=== PATIENT | male | born 1935 | race Caucasian/White ===

== ENCOUNTER 2021-10-05 19:41 | Emergency (ER) | payer MEDICARE, SELFPAY ==
--- NOTE | ~2021-10-05 | CT_ITS ---
EXAMINATION: CT HEAD WITHOUT CONTRAST CT CERVICAL SPINE WITHOUT CONTRAST CLINICAL INFORMATION: Fall. COMPARISON: There are no prior studies available for comparison. TECHNIQUE: Multidetector CT imaging of the head and cervical spine was performed without the use of intravenous contrast. Coronal and sagittal reformatted images were generated at the technologist workstation. This CT examination was performed using dose optimization techniques as appropriate, variously including the following: *Automated exposure control *Adjustment of mA and/or kV according to patient size (this includes techniques or standardized protocols for targeted exams where dose is matched to indication/reason for exam; i.e. extremities or head) *Use of iterative reconstruction technique DLP: 1059 mGy-cm. FINDINGS: CT head: There is no evidence of acute intracranial hemorrhage or territorial infarction. No abnormal mass-effect or midline shift is seen. [place] to white matter differentiation is well preserved. No extra-axial fluid collections are identified. The ventricles and sulci commensurately prominent consistent with moderate to severe diffuse volume loss. There are large areas of low-attenuation in the periventricular and subcortical white matter bilaterally, consistent with chronic microvascular ischemic changes. There are chronic lacunar infarcts in the basal ganglia bilaterally, more prominent on the left. There are extensive calcifications of the cavernous internal carotid arteries bilaterally. There have been bilateral lens extractions. There are no acute osseous findings. There are no large scalp contusions or hematomas. The mastoid air cells and the paranasal sinuses are well-aerated. CT cervical spine: There is a dextroscoliosis. There is a mild degenerative anterolisthesis of C4 on C5. There is partial fusion of the bodies of C2 and C3. There is multilevel narrowing of intervertebral disc height with vacuum disc changes at C6-C7. Vertebral body heights are maintained and no compression fractures. There are severe multilevel facet arthropathic changes; facet alignment is normal. The lateral masses of C1 and C2 are normally aligned and the dens is intact. There are nuchal calcifications. There are extensive vascular calcifications in the neck and superior mediastinum. There is atelectasis and scarring at the left upper lobe. There are no pneumothoraces, contusions or pleural effusions. There are sequelae of median sternotomy. There are mandibular dental implants noted on the certified tumor registrar image. CT/CT cervical spine wo con IMPRESSION: 1. There are no acute bleeds or territorial infarcts. No masses are demonstrated. 2. There are chronic microvascular ischemic changes and there is diffuse volume loss. There are multiple lacunar infarcts. 3. There are no acute fractures or subluxations in the cervical spine. There is severe multilevel facet arthropathy and there are spondylitic changes at multiple levels.
--- NOTE | ~2021-10-05 | XR_ITS ---
EXAMINATION: XR LUMBOSACRAL SPINE CLINICAL INFORMATION: Fall with back pain COMPARISON: None TECHNIQUE: Three views of the lumbosacral spine. FINDINGS: Postoperative changes with pedicular screws at L4-L5 are present with intervertebral disc spacer. The hardware appears intact. There is a mild scoliosis convex to the right. Compression fracture of L1 with concavity of both the superior and inferior endplates with some mild concavity of the superior endplate of L2 as well. No bony destructive changes are seen. Severe aorto iliofemoral atherosclerotic changes are seen. XR/XR lumbar spine 2-3V IMPRESSION: No definite acute osseous injury. Compression fractures, most likely chronic as described above. Fixation hardware L4-L5 appears intact.
--- NOTE | 2021-10-05 19:51 | ECG_ITS ---
Test Reason : FALL Blood Pressure : / mmHG Vent. Rate : 067 BPM Atrial Rate : 067 BPM P-R Int : 192 ms QRS Dur : 154 ms QT Int : 464 ms P-R-T Axes : 001 065 068 degrees QTc Int : 490 ms Normal sinus rhythm Right bundle branch block Abnormal ECG When compared with ECG of 04-MAR-2007 07:24, Right bundle branch block has replaced Incomplete right bundle branch block Referred By: Radha Eagle Electronically Signed By:MILAD QUILES
--- NOTE | 2021-10-05 19:58 | ED.FALL ---
HPI - Fall General Chief Complaint: Fall Stated Complaint: fall/back pain Time Seen by Provider: 10/05/21 19:50 Source: patient and EMS Mode of arrival: EMS Limitations: no limitations History of Present Illness HPI Narrative: [age] year male came in for evaluation after a mechanical fall. Patient was taking a shower when he tried to reach up to the shower handle patient lost balance and fell backward out of the shower, unsure if he hit his head, but decline LOC, no headache, no blurry vision, patient claimed that he is taking a blood thinner not sure the name of a and medication list is not available at the time, complaining of low back pain, patient otherwise does not complain of chest pain, declined dizziness before or after fall. No chest pain, no abdominal pain, no extremities pain, no hip pain. Related Data Previous Rx's Medication Instructions Recorded oxycodone 5 mg tablet 5 mg PO BID PRN #20 tab 10/05/21 Allergies Allergy/AdvReac Type Severity Reaction Status Date / Time amoxicillin [AMOXICILLIN] Allergy Intermediate RASH Verified 10/05/21 20:50 azithromycin Allergy Unknown RASH Verified 10/05/21 20:50 [From ZITHROMAX Z-MIGUEL ANGEL] clopidogrel [Plavix] Allergy Unknown Rash Verified 10/05/21 20:50 doxycycline Allergy Unknown Rash Verified 10/05/21 20:50 levofloxacin Allergy Unknown Rash Verified 10/05/21 20:50 Review of Systems Review of Systems: All other systems are reviewed and are negative Constitutional: Reports as per HPI and Reports no additional constitutional complaints Eyes: Reports as per HPI and Reports no additional eye complaints Reports system reviewed and no additional complaints, except as documented Cardiovascular: Reports as per HPI and Reports no additional cardiovascular complaints Respiratory: Reports as per HPI and Reports no additional respiratory complaints Gastrointestinal: Reports as per HPI and Reports no additional gastrointestinal complaints Genitourinary: Reports no additional female genitourinary complaints Musculoskeletal: Reports no additional musculoskeletal complaints Skin/Breast: Reports system reviewed and no additional complaints, except as docu Psychiatric: Reports no additional psychiatric complaints Endocrine: Reports no additional endocrine complaints Hematologic/Lymphatic: Reports no additional hematologic/lymphatic complaints Allergic/Immunologic: Reports no additional allergic/immunologic complaints Reports system reviewed and no additional complaints, except as documented and Reports Abnormal speech present [facility] Social History Social History Advance Directives: No Advance Directives Information Provided: Yes Physical Exam Vital Signs: Vital Signs: Last Vital Signs Temp 97.8 F 10/05/21 20:06 Pulse 82 10/05/21 23:40 Resp 16 10/05/21 23:40 BP 132/63 10/05/21 23:40 Pulse Ox 91 L 10/05/21 23:40 BMI result Body Mass Index 21.9 Vital signs have been reviewed as appeared to be correct. Blood pressure normal. Heart rate normal. Respiration rate normal. Temperature normal. Oxygen saturation normal. Appearance: Alert. Oriented X3. No acute distress. Head: Normal external exam. Normocephalic. Atraumatic. No Mhaer signs noted. No raccoon eyes noted Eyes: PERRLA. EOMI. Conjunctiva and sclera normal. Eyelids normal. ENT: TM's Normal. Pharynx normal. Uvula midline. Moist mucous membranes. No trismus noted. No drooling noted. No muffled voice noted. Neck: Normal inspection. Neck supple. FROM. No adenopathy. Thyroid Normal. No meningeal signs. No neck mass noted. CVS: Normal heart rate and rhythm. Heart sound normal. No murmurs noted. Pulses normal throughout. Respiratory: No respiratory distress. Painless inspiration. Breath sounds normal. No wheezes/rales/rhonchi noted. Chest nontender. No accessory muscle usage noted or decreased air movement noted. Abdomen: Soft and nontender. Bowel sounds normal in all 4 quadrants. No distention noted. No organomegaly noted. No visible injury noted. Back: Low back tenderness, no step-off, no deformity. Skin: Skin warm and dry. Normal skin color. Normal skin turgor. No rashes/lesions/lacerations noted. Extremities: No lower extremity edema. Extremities exhibit normal range of motion. Extremities nontender. Neuro: Oriented X 3. Cranial nerve exam: II-XII are grossly intact No motor deficit. No sensory deficit. Reflexes normal. Course Course Course Narrative: Assessment and plan. 85-year-old male came in after had a mechanical fall, complaining of low back pain, laboratory workup is unrevealing, CT of the head and C-spine are unremarkable, lumbar spine x-ray showing chronic L1 compression fracture. Patient is comfortable in the emergency department, able to ambulate. Will discharge with family. Reevaluation(s) Reevaluation #1: Patient is ready to be discharged moved from the bed to the wheelchair, patient is complaining of pain, patient was offered to stay for placement to rehab for short stay physical rehab but patient declined this today and would like to be home in the holidays. Will prescribe pills of oxycodone to help with patient home with pain. Time: 00:03 MDM - Fall Medical Records Attestation: I reviewed the patient's medical records. Lab Data Attestation: I reviewed the patient's lab results. Result diagrams: 10/05/21 20:42 10/05/21 20:42 Labs: Lab Results 10/05/21 10/05/21 10/05/21 Range/Units 20:42 20:42 20:42 WBC 11.1 H (4.8-10.8) X10*3/uL RBC 3.56 L (4.60-5.80) X10*6/uL Hgb 11.0 L (14.0-18.0) g/dl Hct 33.4 L (42.0-52.0) % MCV 93.8 (80.0-98.0) fL MCH 30.9 (27.0-33.0) pg MCHC 32.9 (31.0-36.0) g/dl RDW 13.2 (11.0-16.0) % Plt Count 164 (160-400) X10*3/uL MPV 9.1 L (9.4-12.4) fL Immature Gran % (Auto) 0.8 H (0.0-0.4) % Neut % (Auto) 90.5 H (45-73) % Lymph % (Auto) 4.0 L (20-40) % [place] % (Auto) 3.9 (2-11) % Eos % (Auto) 0.7 (0-4) % Baso % (Auto) 0.1 (0-2) % Lymph # (Auto) 0.4 L (1.2-4.9) X10*3/uL [place] # (Auto) 0.4 (0.1-1.2) X10*3/uL Eos # (Auto) 0.1 (0.0-0.4) X10*3/uL Baso # (Auto) 0.0 (0.0-0.2) X10*3/uL Abs Immat Gran (auto) 0.09 H (0.00-0.03) X10*3/uL Absolute Neuts (auto) 10.0 H (2.0-8.3) x10*3/uL Absolute Nucleated RBC 0.000 (0.0-0.012) X10*3/uL Nucleated RBC % (auto) 0.0 (0.0-0.2) /100WBC Smear Tech's Comments VERIFIED PT 12.9 (9.9-13.0) SEC INR 1.1 (0.9-1.1) APTT 42.3 H (24.1-38.0) SEC Sodium 139 (135-145) mmol/L Potassium 4.1 (3.3-5.1) mmol/L Chloride 106 (96-108) mmol/L Carbon Dioxide 25 (22-29) mmol/L Anion Gap 12 (12-20) BUN 23 H (9-16) mg/dL Creatinine 1.30 (0.5-1.4) mg/dL Estim Creat Clear Calc 36.6 Estimated GFR 52 Random Glucose 213 H (60-115) mg/dL Calcium 9.3 (8.4-10.2) mg/dL Troponin I High Sens (<3.5-35.0) ng/L 10/05/21 Range/Units 20:42 WBC (4.8-10.8) X10*3/uL RBC (4.60-5.80) X10*6/uL Hgb (14.0-18.0) g/dl Hct (42.0-52.0) % MCV (80.0-98.0) fL MCH (27.0-33.0) pg MCHC (31.0-36.0) g/dl RDW (11.0-16.0) % Plt Count (160-400) X10*3/uL MPV (9.4-12.4) fL Immature Gran % (Auto) (0.0-0.4) % Neut % (Auto) (45-73) % Lymph % (Auto) (20-40) % [place] % (Auto) (2-11) % Eos % (Auto) (0-4) % Baso % (Auto) (0-2) % Lymph # (Auto) (1.2-4.9) X10*3/uL [place] # (Auto) (0.1-1.2) X10*3/uL Eos # (Auto) (0.0-0.4) X10*3/uL Baso # (Auto) (0.0-0.2) X10*3/uL Abs Immat Gran (auto) (0.00-0.03) X10*3/uL Absolute Neuts (auto) (2.0-8.3) x10*3/uL Absolute Nucleated RBC (0.0-0.012) X10*3/uL Nucleated RBC % (auto) (0.0-0.2) /100WBC Smear Tech's Comments PT (9.9-13.0) SEC INR (0.9-1.1) APTT (24.1-38.0) SEC Sodium (135-145) mmol/L Potassium (3.3-5.1) mmol/L Chloride (96-108) mmol/L Carbon Dioxide (22-29) mmol/L Anion Gap (12-20) BUN (9-16) mg/dL Creatinine (0.5-1.4) mg/dL Estim Creat Clear Calc Estimated GFR Random Glucose (60-115) mg/dL Calcium (8.4-10.2) mg/dL Troponin I High Sens 8.4 (<3.5-35.0) ng/L Imaging Data Lumbar spine x-ray: Attestation: I personally reviewed and interpreted this imaging study as follows: Radiologist's impression: No definite acute osseous injury. Compression fractures, most likely chronic as described above. Fixation hardware L4-L5 appears intact. CT scan - head: Attestation: I personally reviewed and interpreted this imaging study as follows: Radiologist's impression: 1. There are no acute bleeds or territorial infarcts. No masses are demonstrated. ? 2. There are chronic microvascular ischemic changes and there is diffuse volume loss. There are multiple lacunar infarcts. cervical spine ct: Attestation: I personally reviewed and interpreted this imaging study as follows: Radiologist's impression: There are no acute fractures or subluxations in the cervical spine. There is severe multilevel facet arthropathy and there are spondylitic changes at multiple levels. ECG Data Attestation: I personally reviewed and interpreted this ECG as follows: Interpretation: Normal sinus rhythm at 67 beats per minutes, normal intervals, except prolongation of QRS, right bundle branch block. changed from old EKG from incomplete right bundle-branch block to complete right bundle branch block. Discharge Plan Discharge Clinical Impression: Compression fracture Fall Qualifiers: Encounter type: initial encounter Qualified Code(s): W19.XXXA - Unspecified fall, initial encounter Patient Disposition: Home, Self-Care Instructions: Fall Prevention for Older Adults (ED) Prescriptions: New oxycodone 5 mg tablet 5 mg PO BID PRN (Reason: pain) Qty: 20 RF: 0 Referrals: Physician,Unknown J [Primary Care Provider] - 2 days
[2021-10-05 20:06] VITALS: BP 181/57; PULSE 73; RESP 16; TEMP 36.6; O2SAT 92; BMI 21.9
[2021-10-05 20:48] VITALS: BP 145/53; PULSE 72; RESP 15; O2SAT 95
[2021-10-05 20:50] LABS: Basophils Percent Auto 0.1 % (0-2); Eosinophils Absolute Auto 0.1 X10*3/uL (0.0-0.4); Eosinophils Percent Auto 0.7 % (0-4); Hematocrit 33.4 % (42.0-52.0); Imm Gran Abs Auto 0.09 X10*3/uL (0.00-0.03); Imm Gran Pct Auto 0.8 % (0.0-0.4); Lymphocytes Absolute Auto 0.4 X10*3/uL (1.2-4.9); MANUAL DIFF FLAG SCAN; Mean Corpuscular HGB Conc 32.9 g/dl (31.0-36.0); Mean Corpuscular Hemoglobin 30.9 pg (27.0-33.0); Mean Corpuscular Volume 93.8 fL (80.0-98.0); Mean Platelet Volume 9.1 fL (9.4-12.4); Monocytes Absolute Auto 0.4 X10*3/uL (0.1-1.2); Monocytes Percent Auto 3.9 % (2-11); Neutrophils Percent Auto 90.5 % (45-73); Platelet Count 164 X10*3/uL (160-400); Red Blood Count 3.56 X10*6/uL (4.60-5.80); Red Cell Distribution Width 13.2 % (11.0-16.0); SCAN SMEAR FLAG 1; White Blood Count 11.1 X10*3/uL (4.8-10.8)
[2021-10-05] MEDS: Acetaminophen 325 MG TABLET 650 MG PO (20:50)
[2021-10-05 21:04] LABS: INTERNATIONAL NORM RATIO 1.1 (0.9-1.1); Prothrombin Time 12.9 SEC (9.9-13.0)
[2021-10-05 21:07] LABS: Partial Thromboplastin Time 42.3 SEC (24.1-38.0)
[2021-10-05 21:15] LABS: Anion Gap 12 (12-20); Blood Urea Nitrogen 23 mg/dL (9-16); Calcium 9.3 mg/dL (8.4-10.2); Carbon Dioxide 25 mmol/L (22-29); Chloride 106 mmol/L (96-108); Creatinine Clr Calc Pharmacy 36.6; Estimated Glomerular Filt Rate 52; Glucose Random 213 mg/dL (60-115); Potassium 4.1 mmol/L (3.3-5.1); Sodium 139 mmol/L (135-145)
[2021-10-05 21:23] LABS: Troponin-I High Sensitivity 8.4 ng/L (<3.5-35.0)
[2021-10-05 21:31] LABS: SLIDE REVIEW VERIFIED
[2021-10-05] MEDS: oxyCODONE HCl Immed Release 5 MG TABLET PO (22:29)
--- NOTE | 2021-10-05 23:25 | PC.NURSE ---
This RN called PT's to coordinate a ride home. stated that she cannot drive at night but she would call her daughter to flower picker the PT. stated that she would call back with a plan.
[2021-10-05 23:40] VITALS: BP 132/63; PULSE 82; RESP 16; O2SAT 91
== END 2021-10-06 00:16 | disposition home or self-care (01) ==
PROVIDERS: Emergency Provider Emergency Medicine
DX: S32.040A Wedge compression fracture of fourth lumbar vertebra, initial encounter for closed fracture (principal); S32.050A Wedge compression fracture of fifth lumbar vertebra, initial encounter for closed fracture; W18.2XXA Fall in (into) shower or empty bathtub, initial encounter; Z91.81 History of falling; Y93.E1 Activity, personal bathing and showering; Y92.012 Bathroom of single-family (private) house as the place of occurrence of the external cause; Y99.9 Unspecified external cause status
CPT/HCPCS: 36415; 70450; 72100; 72125; 80048; 84484; 85025; 85610; 85730; 93005; 99284

== ENCOUNTER 2021-10-19 00:35 | Inpatient (IN) | payer OTHER, SELFPAY ==
--- NOTE | ~2021-10-19 | XR_ITS ---
EXAMINATION: XR CHEST CLINICAL INFORMATION: Weakness COMPARISON: Comparison is made with previous chest x-ray from March 2010. TECHNIQUE: Frontal view of the chest was obtained. FINDINGS: The cardiac silhouette does not appear enlarged. There are median sternotomy wires and post-CABG changes There is a surgical staple line seen projecting over the left upper lung that is new. There is elevation of the right hemidiaphragm. The lungs are clear. There is no pleural effusion. There is no pneumothorax. There are degenerative changes of the spine. XR/XR chest 1V IMPRESSION: No evidence for acute disease in the chest. Post-CABG changes. Elevated right hemidiaphragm. New postsurgical changes to the left upper lobe.
--- NOTE | ~2021-10-19 | CT_ITS ---
EXAMINATION: CT ABDOMEN AND PELVIS WITHOUT CONTRAST CLINICAL INFORMATION: Weakness, constipation COMPARISON: None TECHNIQUE: Multidetector volumetric imaging was performed from the superior aspect of the liver through the pubic symphysis. Sagittal and coronal reformatted images were obtained on the technologist's workstation. This CT examination was performed using dose optimization techniques as appropriate, variously including the following: *Automated exposure control *Adjustment of mA and/or kV according to patient size (this includes techniques or standardized protocols for targeted exams where dose is matched to indication/reason for exam; i.e. extremities or head) *Use of iterative reconstruction technique DLP: 438 mGy-cm FINDINGS: LUNG BASES: No effusion. Density in the left upper lobe partially imaged may represent represent a scar. Incompletely characterized. LIVER, GALLBLADDER, AND BILIARY TREE: The liver is normal in size, shape, and attenuation. No focal hepatic lesion or biliary ductal dilatation is present. Gallstones are noted PANCREAS: Unremarkable. SPLEEN: Unremarkable. ADRENAL GLANDS: Unremarkable. KIDNEYS AND URETERS: Probable cystic change. No hydronephrosis. BLADDER: Edmondson catheter within a decompressed bladder GASTROINTESTINAL TRACT: Moderate to marked rectosigmoid stool. Diverticulosis. No evidence for diverticulitis. No obstruction. ABDOMINAL WALL: No significant hernia is appreciated. LYMPH NODES: Normal. VASCULAR: Calcified vasculature PELVIC VISCERA: Unremarkable. OSSEOUS STRUCTURES: Compression injury at L1. Also seen on 10/05/2021 age-indeterminate. There is some mild retropulsion of fracture fragments into the region of the canal by [address]/CT abdomen pelvis wo con IMPRESSION: There is no acute finding here. Moderate to marked rectosigmoid stool with more moderate stool throughout the remainder the colon. No suspicious fluid collection. Gallstones. Compression injury at L1 which is age indeterminate but seen on plain films from 10/05/2021. Some retropulsion of posterior cortex into the region of the canal. Fleischner guidelines were followed.
[2021-10-19 02:23] VITALS: BP 116/47; PULSE 70; RESP 16; TEMP 36.3; O2SAT 95; BMI 23.3
--- NOTE | 2021-10-19 08:02 | ECG_ITS ---
Test Reason : weakness Blood Pressure : / mmHG Vent. Rate : 064 BPM Atrial Rate : 064 BPM P-R Int : 192 ms QRS Dur : 170 ms QT Int : 468 ms P-R-T Axes : -12 064 040 degrees QTc Int : 482 ms Sinus rhythm with Premature supraventricular complexes Right bundle branch block Possible Inferior infarct (cited on or before 19-OCT-2021) Anterolateral infarct (cited on or before 19-OCT-2021) Abnormal ECG When compared with ECG of 05-OCT-2021 20:06, Premature supraventricular complexes are now Present Serial changes of Anterior infarct Present Referred By: Marilyn Galvin Electronically Signed By:MARIO CORTES MD
--- NOTE | 2021-10-19 08:18 | ED.WEAKNESS ---
HPI - Weakness General Chief complaint: Weakness Stated complaint: WEAK SINCE FALL ON CLAY PER Time Seen by Provider: 10/19/21 07:59 Source: patient and old records reviewed Mode of arrival: EMS Limitations: no limitations History of Present Illness HPI Narrative: seen 10/05 for fall - xray showed chronic L1 compression fracture sent home with oxycodone now states constipation x 4 days and fell asleep on toilet today because he was so tired, pinpoint pupils - runny nose and cough Complaint: generalized weakness (constipation) Onset (ago): day(s) (4) Duration: constant Location: generalized Migration: none Severity: moderate Quality: aching Relieving factors: none Exacerbating factors: none Context: new medication and recent illness Associated symptoms: other (constipation, weakness) Related Data Home Medications Medication Instructions Recorded Confirmed amlodipine 5 mg tablet 1 tab PO DAILY 10/19/21 10/19/21 aspirin 81 mg tablet,delayed 81 mg PO DAILY 10/19/21 10/19/21 release atorvastatin 40 mg tablet 1 tab PO BEDTIME 10/19/21 10/19/21 carvedilol 12.5 mg tablet 6.25 mg PO BID 10/19/21 10/19/21 ezetimibe 10 mg tablet 1 tab PO DAILY 10/19/21 10/19/21 indapamide 1.25 mg tablet 1 tab PO DAILY 10/19/21 10/19/21 lisinopril 40 mg tablet 1 tab PO DAILY 10/19/21 10/19/21 ticagrelor 90 mg tablet (Brilinta) 1 tab PO BID 10/19/21 10/19/21 timolol maleate 0.5 % eye drops 1 drp OPHTHALMIC (EYE) DAILY 10/19/21 10/19/21 umeclidinium 62.5 mcg/actuation 1 puff INHALATION DAILY 10/19/21 10/19/21 blister powder for inhalation (Incruse Ellipta) Previous Rx's Medication Instructions Recorded oxycodone 5 mg tablet 5 mg PO BID PRN #20 tab 10/05/21 Allergies Allergy/AdvReac Type Severity Reaction Status Date / Time amoxicillin [AMOXICILLIN] Allergy Intermediate RASH Verified 10/05/21 20:50 azithromycin Allergy Unknown RASH Verified 10/05/21 20:50 [From ZITHROMAX Z-MIGUEL ANGEL] clopidogrel [Plavix] Allergy Unknown Rash Verified 10/05/21 20:50 doxycycline Allergy Unknown Rash Verified 10/05/21 20:50 levofloxacin Allergy Unknown Rash Verified 10/05/21 20:50 Review of Systems Review of Systems: Constitutional : No Weight loss, No Fever, No Chills ENT/Mouth : No sore throat, No Rhinorrhea Eyes: No Swelling, No Redness Cardiovascular : No Chest Pain, No SOB, NoEdema Respiratory : No Cough, No Sputum, No Wheezing Gastrointestinal : no Nausea, no Vomiting, no Diarrhea, no abdominal Pain, No Hematochezia, No Melena, pos constipation Genitourinary : No Dysuria, No Urinary Frequency, No Hematuria, No Urgency Musculoskeletal : No joint pain, No Myalgias, No Joint Swelling Skin : No Skin Lesions, No rash Neuro : pos Weakness, No Numbness, No Dizziness, No Headache Psych : No Anxiety/Panic, No Depression Heme/Lymph: No Bruising, No Lymphadenopathy Endocrine : No Polyuria, No Polydipsia All other systems reviewed and are negative. [facility] Past Medical History Medical History CAD (coronary artery disease) Compression fracture of lumbar spine, non-traumatic HTN (hypertension) Hyperlipidemia Social History Social History (Updated 10/19/21 @ 08:37 by Marilyn Galvin DO) Patient Tobacco Use Status: Former Tobacco user Use of substances other than those prescribed or required for medical reasons: No Advance Directives: No Advance Directives Information Provided: Yes Physical Exam Vital Signs: Vital Signs: Last Vital Signs Temp 97.4 F 10/19/21 02:23 Pulse 64 10/19/21 09:50 Resp 16 10/19/21 09:50 BP 154/55 H 10/19/21 09:50 Pulse Ox 97 10/19/21 09:50 BMI result Body Mass Index 23.3 Appearance: Alert. Oriented X3. No acute distress. Eyes: Pupils equal, round and reactive to light. ENT: Pharynx normal. Runny nose Neck: Normal inspection. Neck supple. CVS: Normal heart rate and rhythm. Pulses normal. Respiratory: No respiratory distress. Breath sounds diminished bases Abdomen: Soft and non-tender. Skin: Skin warm and dry. Normal skin color. Normal skin turgor. Extremities: No lower extremity edema. No calf ttp L5 5/5 intact, SILT inner thigh Neuro: Oriented X 3. No motor deficit. No sensory deficit. Course Course Course Narrative: urine resulted positive at this time infection suspected 940am - IV ceftriaxone ordered. MDM - Weakness MDM Narrative Medical decision making narrative: 85 yo male with hx of HTN, HPL, CAD, hx of compression fractures on oxycodone as needed for back pain presents with 4 days of constipation weakness found asleep on toilet today after trying to have BM at this time will need labs, CT scan for mass/constipation, CXR, UA COVID swab. Dispo per result and findings. Lab Data Result diagrams: 10/19/21 08:42 10/19/21 08:42 Labs: Lab Results 10/19/21 10/19/21 10/19/21 Range/Units 08:42 08:42 08:42 WBC 12.9 H (4.8-10.8) X10*3/uL RBC 3.60 L (4.60-5.80) X10*6/uL Hgb 11.3 L (14.0-18.0) g/dl Hct 33.5 L (42.0-52.0) % MCV 93.1 (80.0-98.0) fL MCH 31.4 (27.0-33.0) pg MCHC 33.7 (31.0-36.0) g/dl RDW 13.8 (11.0-16.0) % Plt Count 245 D (160-400) X10*3/uL MPV 8.9 L (9.4-12.4) fL Immature Gran % (Auto) 0.5 H (0.0-0.4) % Neut % (Auto) 91.2 H (45-73) % Lymph % (Auto) 3.0 L (20-40) % [place] % (Auto) 4.9 (2-11) % Eos % (Auto) 0.3 (0-4) % Baso % (Auto) 0.1 (0-2) % Lymph # (Auto) 0.4 L (1.2-4.9) X10*3/uL [place] # (Auto) 0.6 (0.1-1.2) X10*3/uL Eos # (Auto) 0.0 (0.0-0.4) X10*3/uL Baso # (Auto) 0.0 (0.0-0.2) X10*3/uL Abs Immat Gran (auto) 0.06 H (0.00-0.03) X10*3/uL Absolute Neuts (auto) 11.8 H (2.0-8.3) x10*3/uL Absolute Nucleated RBC 0.000 (0.0-0.012) X10*3/uL Nucleated RBC % (auto) 0.0 (0.0-0.2) /100WBC Smear Tech's Comments VERIFIED Sodium 138 (135-145) mmol/L Potassium 4.3 (3.3-5.1) mmol/L Chloride 100 (96-108) mmol/L Carbon Dioxide 28 (22-29) mmol/L Anion Gap 14 (12-20) BUN 57 H D (9-16) mg/dL Creatinine 2.37 H (0.5-1.4) mg/dL Estim Creat Clear Calc 20.1 Estimated GFR 26 Random Glucose 181 H (60-115) mg/dL Lactic Acid (0.5-2.0) mmol/L Calcium 10.0 D (8.4-10.2) mg/dL Magnesium 2.9 H (1.6-2.6) mg/dL Total Bilirubin 1.0 (0.0-1.0) mg/dL Direct Bilirubin 0.6 H (0.0-0.5) mg/dL AST 19 (5-37) U/L ALT 17 (0-40) U/L Alkaline Phosphatase 125 H (39-117) U/L Total Creatine Kinase 108 (38-174) U/L Troponin I High Sens (<3.5-35.0) ng/L Total Protein 7.1 (6.5-8.0) g/dL Albumin 4.2 (3.5-5.0) g/dL Lipase 13 (8-78) U/L Urine Color Urine Appearance Urine pH (5.0-8.0) Ur Specific [place] (1.005-1.025) Urine Protein (NEG-TRACE) MG/DL Urine Glucose (UA) (NEG) MG/DL Urine Ketones (NEG) MG/DL Urine Blood (NEG) Urine Nitrite (NEG) Ur Leukocyte Esterase (NEG) Urine RBC (0) /HPF Urine WBC (0-4) /HPF Ur Squamous Epith Cells /LPF Urine Bacteria /LPF COVID-19 (OCTAVIA) Negative (Negative) COVID-19 Clin Com See Note 10/19/21 10/19/21 10/19/21 Range/Units 08:42 08:42 09:29 WBC (4.8-10.8) X10*3/uL RBC (4.60-5.80) X10*6/uL Hgb (14.0-18.0) g/dl Hct (42.0-52.0) % MCV (80.0-98.0) fL MCH (27.0-33.0) pg MCHC (31.0-36.0) g/dl RDW (11.0-16.0) % Plt Count (160-400) X10*3/uL MPV (9.4-12.4) fL Immature Gran % (Auto) (0.0-0.4) % Neut % (Auto) (45-73) % Lymph % (Auto) (20-40) % [place] % (Auto) (2-11) % Eos % (Auto) (0-4) % Baso % (Auto) (0-2) % Lymph # (Auto) (1.2-4.9) X10*3/uL [place] # (Auto) (0.1-1.2) X10*3/uL Eos # (Auto) (0.0-0.4) X10*3/uL Baso # (Auto) (0.0-0.2) X10*3/uL Abs Immat Gran (auto) (0.00-0.03) X10*3/uL Absolute Neuts (auto) (2.0-8.3) x10*3/uL Absolute Nucleated RBC (0.0-0.012) X10*3/uL Nucleated RBC % (auto) (0.0-0.2) /100WBC Smear Tech's Comments Sodium (135-145) mmol/L Potassium (3.3-5.1) mmol/L Chloride (96-108) mmol/L Carbon Dioxide (22-29) mmol/L Anion Gap (12-20) BUN (9-16) mg/dL Creatinine (0.5-1.4) mg/dL Estim Creat Clear Calc Estimated GFR Random Glucose (60-115) mg/dL Lactic Acid 1.4 (0.5-2.0) mmol/L Calcium (8.4-10.2) mg/dL Magnesium (1.6-2.6) mg/dL Total Bilirubin (0.0-1.0) mg/dL Direct Bilirubin (0.0-0.5) mg/dL AST (5-37) U/L ALT (0-40) U/L Alkaline Phosphatase (39-117) U/L Total Creatine Kinase (38-174) U/L Troponin I High Sens 8.4 (<3.5-35.0) ng/L Total Protein (6.5-8.0) g/dL Albumin (3.5-5.0) g/dL Lipase (8-78) U/L Urine Color DK YELLOW Urine Appearance HAZY Urine pH 5.0 (5.0-8.0) Ur Specific [place] 1.025 (1.005-1.025) Urine Protein TRACE (NEG-TRACE) MG/DL Urine Glucose (UA) NEG (NEG) MG/DL Urine Ketones 5 (NEG) MG/DL Urine Blood NEG (NEG) Urine Nitrite NEG (NEG) Ur Leukocyte Esterase 2+ H (NEG) Urine RBC 0 (0) /HPF Urine WBC 15-29 H (0-4) /HPF Ur Squamous Epith Cells 1+ /LPF Urine Bacteria 4+ /LPF COVID-19 (OCTAVIA) (Negative) COVID-19 Clin Com ECG Data Attestation: I personally reviewed and interpreted this ECG as follows: ECG interpretation date: 10/19/21 ECG interpretation time: 08:32 Interpretation: Rate: 64 Rhythm: NSR [place]: normal Normal P waves. Normal JERRI. RBBB ST T wave : nonspecific, no RALPH qTC: normal prior studies: no acute ischemia The study has been interpreted contemporaneously by me. . Discharge Plan Discharge Clinical Impression: SONYA (acute kidney injury), Acute UTI, Constipation Patient Disposition: Admitted As Inpatient
[2021-10-19 08:52] VITALS: BP 141/56; PULSE 64; RESP 16
[2021-10-19 08:52] LABS: Basophils Percent Auto 0.1 % (0-2); Eosinophils Percent Auto 0.3 % (0-4); Hematocrit 33.5 % (42.0-52.0); Hemoglobin 11.3 g/dl (14.0-18.0); Imm Gran Abs Auto 0.06 X10*3/uL (0.00-0.03); Imm Gran Pct Auto 0.5 % (0.0-0.4); Lymphocytes Absolute Auto 0.4 X10*3/uL (1.2-4.9); MANUAL DIFF FLAG SCAN; Mean Corpuscular HGB Conc 33.7 g/dl (31.0-36.0); Mean Corpuscular Volume 93.1 fL (80.0-98.0); Mean Platelet Volume 8.9 fL (9.4-12.4); Monocytes Absolute Auto 0.6 X10*3/uL (0.1-1.2); Monocytes Percent Auto 4.9 % (2-11); Neutrophils Absolute Auto 11.8 x10*3/uL (2.0-8.3); Neutrophils Percent Auto 91.2 % (45-73); Platelet Count 245 X10*3/uL (160-400); Red Cell Distribution Width 13.8 % (11.0-16.0); SCAN SMEAR FLAG 1; White Blood Count 12.9 X10*3/uL (4.8-10.8)
[2021-10-19 08:54] LABS: Mean Corpuscular Hemoglobin 31.4 pg (27.0-33.0)
[2021-10-19] MEDS: 0.9 % Sodium Chloride 500 ML IV (08:54)
[2021-10-19 09:05] LABS: Lactic Acid 1.4 mmol/L (0.5-2.0)
[2021-10-19 09:07] LABS: COVID-19 Test Negative (Negative)
[2021-10-19 09:13] LABS: Alanine Aminotransferase 17 U/L (0-40); Albumin Level 4.2 g/dL (3.5-5.0); Alkaline Phosphatase 125 U/L (39-117); Anion Gap 14 (12-20); Aspartate Amino Transferase 19 U/L (5-37); Bilirubin Direct 0.6 mg/dL (0.0-0.5); Blood Urea Nitrogen 57 mg/dL (9-16); Carbon Dioxide 28 mmol/L (22-29); Chloride 100 mmol/L (96-108); Creatinine Clr Calc Pharmacy 20.1; Estimated Glomerular Filt Rate 26; Glucose Random 181 mg/dL (60-115); Lipase 13 U/L (8-78); Magnesium 2.9 mg/dL (1.6-2.6); Potassium 4.3 mmol/L (3.3-5.1); Sodium 138 mmol/L (135-145); Total Protein 7.1 g/dL (6.5-8.0)
[2021-10-19 09:14] LABS: SLIDE REVIEW VERIFIED
[2021-10-19 09:15] LABS: Troponin-I High Sensitivity 8.4 ng/L (<3.5-35.0)
[2021-10-19 09:36] LABS: Appearance Urine HAZY; Color Urine DK YELLOW; Glucose Urine UA NEG (NEG); Leukocyte Esterase Urine 2+ (NEG); Nitrite Urine NEG (NEG); Specific Gravity - Urine 1.025 (1.005-1.025); UACC Culture Trigger YES; Urine Blood NEG (NEG); Urine Ketones 5 MG/DL (NEG); Urine Protein TRACE MG/DL (NEG-TRACE)
[2021-10-19 09:44] LABS: Bacteria Urine 4+ /LPF; RBC Urine 0 /HPF (0); Squamous Epithelial Cell Urine 1+ /LPF
[2021-10-19] MEDS: cefTRIAXone sodium 1 GM in 0.9 % Sodium Chloride 50 ML IV (09:46)
[2021-10-19 09:50] VITALS: BP 154/55; PULSE 64; RESP 16; O2SAT 97
--- NOTE | 2021-10-19 10:19 | PHA.MEDREC ---
Pharmacy Consult ? Medication Reconciliation Pharmacy has completed the medication reconciliation. Spoke to . Pt not on ropinorole anymore
[2021-10-19] MEDS: 0.9 % Sodium Chloride 1,000 ML 75 ML IVCONT (10:57)
[2021-10-19] MEDS: Lactulose 20 GM/30 ML SOLUTION PO (10:59)
--- NOTE | 2021-10-19 13:02 | PM.IMHP ---
History of Present Illness Date of Service: 10/19/21 Chief Complaint: constipation and abdominal pain This is an 85 yo M with multiple medical issues as outlined below who presents to the emergency room with complaints of abdominal pain (several days duration) and constipation (about 1 week) without any associated nausea and vomiting but with loss of appetite and poor oral intake. The patient presented to [facility] ED after sustaining a mechanical fall which resulted in a compression fracture of the L1/L2 vertebrae. He was discharged home on oral pain control and now returns about 2 weeks later with the prior mentioned symptoms. History if obtained from him as well as his (and HCP) Kayla Isidro over the phone. She reports that he has been in agonizing pain the last several days and not eaten much so at her urging, he came to the ED. In the ED, a CT scan of the abdomen showed a large stool burden. His BMP showed SONYA. His UA was suggestive of possible UTI. He was given IVF, IV antibiotics, a Vidal catheter was placed and he will be admitted for further treatment. 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 She reports that he is getting a chemo infusion every 3 weeks currently. COVID Vaccination Status: Received 2 dose moderna series + booster. Review of Systems Review of Systems: negative except HPI [facility] Medical History (Updated 10/19/21 @ 13:09 by Alexis Davies MD) CAD (coronary artery disease) Compression fracture of lumbar spine, non-traumatic HTN (hypertension) Hyperlipidemia Surgical History (Updated 10/19/21 @ 13:09 by Alexis Davies MD) Hx of CABG Social History (Updated 10/19/21 @ 13:09 by Alexis Davies MD) Alcohol intake: former Patient Tobacco Use Status: Former Tobacco user Use of substances other than those prescribed or required for medical reasons: No Advance Directives: No Advance Directives Information Provided: Yes Meds Allergies Allergy/AdvReac Type Severity Reaction Status Date / Time amoxicillin [AMOXICILLIN] Allergy Intermediate RASH Verified 10/05/21 20:50 azithromycin Allergy Unknown RASH Verified 10/05/21 20:50 [From ZITHROMAX Z-MIGUEL ANGEL] clopidogrel [Plavix] Allergy Unknown Rash Verified 10/05/21 20:50 doxycycline Allergy Unknown Rash Verified 10/05/21 20:50 levofloxacin Allergy Unknown Rash Verified 10/05/21 20:50 Active Medications: Current Medications Acetaminophen (Acetaminophen 325 Mg Tablet) 650 mg PO Q6H PRN PRN Reason: Pain, Mild (Pain Scale 1-3) Heparin Sodium (Porcine) (Heparin Sodium,Porcine 5,000 Unit/Ml Vial) 5,000 unit SUBCUT Q12H [facility] Sodium Chloride (Ns) 1,000 mls @ 75 mls/hr IVCONT .[id number] [facility] Last Admin: 10/19/21 10:57 Dose: 75 mls/hr Documented by: Ceftriaxone Sodium 1 gm/ (Sodium Chloride) 50 mls @ 100 mls/hr IV Q24H [facility] Oxycodone HCl (Oxycodone Hcl Immed Release 5 Mg Tablet) 5 mg PO Q6H PRN PRN Reason: Pain, Severe (Pain Scale 7-10) Pharmacy Consult (Consult Rx Perform Med Rec) 1 each MISCELLANE ONCE PRN PRN Reason: Consult order Polyethylene Glycol (Polyethylene Glycol 3350 17 Gm Powd.Pack) 17 gm PO DAILY [facility] Senna/Docusate Sodium (Sennosides/Docusate Sodium Tablet) 1 tab PO BID [facility] Sodium Chloride (0.9 % Sodium Chloride Flush 3 Ml Syringe) 3 ml IVFLUSH QSHIFT [facility] Home Medications Medication Instructions Recorded Confirmed Last Taken Type amlodipine 5 mg tablet 1 tab PO DAILY 10/19/21 10/19/21 10/18/21 History aspirin 81 mg tablet,delayed 81 mg PO DAILY 10/19/21 10/19/21 10/19/21 History release atorvastatin 40 mg tablet 1 tab PO BEDTIME 10/19/21 10/19/21 10/18/21 History carvedilol 12.5 mg tablet 6.25 mg PO BID 10/19/21 10/19/21 10/18/21 History ezetimibe 10 mg tablet 1 tab PO DAILY 10/19/21 10/19/21 10/18/21 History indapamide 1.25 mg tablet 1 tab PO DAILY 10/19/21 10/19/21 Unknown History lisinopril 40 mg tablet 1 tab PO DAILY 10/19/21 10/19/21 10/18/21 History ticagrelor 90 mg tablet (Brilinta) 1 tab PO BID 10/19/21 10/19/21 10/18/21 History timolol maleate 0.5 % eye drops 1 drp OPHTHALMIC (EYE) DAILY 10/19/21 10/19/21 10/18/21 History umeclidinium 62.5 mcg/actuation 1 puff INHALATION DAILY 10/19/21 10/19/21 10/18/21 History blister powder for inhalation (Incruse Ellipta) Physical Exam Vital Signs and Narrative: Vital Signs: Last Vital Signs Temp 97.4 F 10/19/21 02:23 Pulse 64 10/19/21 09:50 Resp 16 10/19/21 09:50 BP 154/55 H 10/19/21 09:50 Pulse Ox 97 10/19/21 09:50 BMI result Body Mass Index 23.3 Const: Other: Constitutional - Awake and Alert, No apparent distress HEENT - PERRLA, EOMI, Dry mucous membranes Cardiovascular - S1S2, RRR, No edema Respiratory - Normal lung expansion, Normal respiratory effort, No respiratory distress, CTA bilaterally Gastrointestinal - NT / ND; +BS; No rebound or guarding - No CVA tenderness; Vidal with concentrated urine Extremities - no calf tenderness bilaterally, no swelling Musculoskeletal - Normal inspection, normal ROM Skin - Warm/Dry Neurological - Alert & oriented x3, No focal deficit Psychological - Appropriate affect Results Labs CBC and Chem 7: 10/19/21 08:42 10/19/21 08:42 Labs: Laboratory Results - last 24 hr 10/19/21 10/19/21 10/19/21 08:42 08:42 08:42 MCV 93.1 MCH 31.4 MCHC 33.7 RDW 13.8 Plt Count 245 D MPV 8.9 L Immature Gran % (Auto) 0.5 H Neut % (Auto) 91.2 H Lymph % (Auto) 3.0 L [place] % (Auto) 4.9 Eos % (Auto) 0.3 Baso % (Auto) 0.1 Lymph # (Auto) 0.4 L [place] # (Auto) 0.6 Eos # (Auto) 0.0 Baso # (Auto) 0.0 Abs Immat Gran (auto) 0.06 H Absolute Neuts (auto) 11.8 H Absolute Nucleated RBC 0.000 Nucleated RBC % (auto) 0.0 Smear Tech's Comments VERIFIED Anion Gap 14 Estim Creat Clear Calc 20.1 Estimated GFR 26 Random Glucose 181 H Lactic Acid Calcium 10.0 D Magnesium 2.9 H Total Bilirubin 1.0 Direct Bilirubin 0.6 H AST 19 ALT 17 Alkaline Phosphatase 125 H Total Creatine Kinase 108 Troponin I High Sens Total Protein 7.1 Albumin 4.2 Lipase 13 Urine Color Urine Appearance Urine pH Ur Specific [place] Urine Protein Urine Glucose (UA) Urine Ketones Urine Blood Urine Nitrite Ur Leukocyte Esterase Urine RBC Urine WBC Ur Squamous Epith Cells Urine Bacteria COVID-19 ([facility]) Negative COVID-19 Clin Com See Note 10/19/21 10/19/21 10/19/21 08:42 08:42 09:29 MCV MCH MCHC RDW Plt Count MPV Immature Gran % (Auto) Neut % (Auto) Lymph % (Auto) [place] % (Auto) Eos % (Auto) Baso % (Auto) Lymph # (Auto) [place] # (Auto) Eos # (Auto) Baso # (Auto) Abs Immat Gran (auto) Absolute Neuts (auto) Absolute Nucleated RBC Nucleated RBC % (auto) Smear Tech's Comments Anion Gap Estim Creat Clear Calc Estimated GFR Random Glucose Lactic Acid 1.4 Calcium Magnesium Total Bilirubin Direct Bilirubin AST ALT Alkaline Phosphatase Total Creatine Kinase Troponin I High Sens 8.4 Total Protein Albumin Lipase Urine Color DK YELLOW Urine Appearance HAZY Urine pH 5.0 Ur Specific [place] 1.025 Urine Protein TRACE Urine Glucose (UA) NEG Urine Ketones 5 Urine Blood NEG Urine Nitrite NEG Ur Leukocyte Esterase 2+ H Urine RBC 0 Urine WBC 15-29 H Ur Squamous Epith Cells 1+ Urine Bacteria 4+ COVID-19 ([facility]) COVID-19 Clin Com Imaging Radiologist's Impressions: Impressions Chest X-Ray 10/19/21 09:18 IMPRESSION: No evidence for acute disease in the chest. Post-CABG changes. Elevated right hemidiaphragm. New postsurgical changes to the left upper lobe. Abdomen/Pelvis CT 10/19/21 10:19 IMPRESSION: There is no acute finding here. Moderate to marked rectosigmoid stool with more moderate stool throughout the remainder the colon. No suspicious fluid collection. Gallstones. Compression injury at L1 which is age indeterminate but seen on plain films from 10/05/2021. Some retropulsion of posterior cortex into the region of the canal. Fleischner guidelines were followed. Assessment and Plan (1) SONYA (acute kidney injury): Status: Acute (2) Acute UTI: Status: Acute This is an 85 yo M with a PMH of CAD - s/p stenting and CABG, 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 He has had poor oral intake and loss of apppetite. He is found to have SONYA and severe constipation. He will be admitted for further work up. 1. Acute Kidney Injury Due to poor oral intake while being on LULU inhibitor Gentle IVF Unclear if he has had urinary retention vs low urine output due to hypovoluemia; keep vidal today and voiding trial tomorrow Monitor renal function and if no improvement/worsens -- get nephrology involved Hold LULU SONYA is not due to Sepsis, patient does not have sepsis. 2. Severe constipation Received lactuose in the ED Will start him on scheduled Miralax + Senna/Colace combo suspected due to opiates for back pain 3. CAD - s/p CABG + Stents continue BB, statin, antiplatelets, statin/zetia 4. HTN continue norvasc + coreg 5. Pyuria no urinary symptoms endorses empiric rocephin and d/c antibiotics if urine cx negative Code status d/w the patient -- he states he does know; d/w -- she reports from prior discussion with him -- he wants to be full code DVT pptx, subcut. heparin Quality Stroke Does the patient have a stroke diagnosis?: No VTE Prior VTE?: No VTE Risk Level:: Medical - moderate - high VTE Device Contraindication: Treatment Not Indicated VTE Drug Contraindication: N/A - Med Ordered
[2021-10-19] MEDS: polyethylene glycoL 3350 17 GM POWD.PACK PO (14:09)
[2021-10-19] MEDS: Heparin Sodium,Porcine 5,000 UNIT/ML VIAL 5000 UNIT SUBCUT (14:10)
[2021-10-19] MEDS: amLODIPine Besylate 5 MG TABLET PO (14:11)
[2021-10-19 14:14] VITALS: BP 172/75; PULSE 88; RESP 18; O2SAT 97
[2021-10-19] MEDS: 0.9 % Sodium Chloride Flush 3 ML SYRINGE IVFLUSH (18:16)
[2021-10-19] MEDS: Acetaminophen 325 MG TABLET 650 MG PO (19:42)
--- NOTE | 2021-10-19 20:00 | PC.NURSE ---
Assumed care of pt Pt finished dinner Pt requesting tylenol Will continue to monitor
[2021-10-19 20:28] VITALS: BP 164/84; PULSE 95; RESP 20; TEMP 36.4; O2SAT 95
[2021-10-19] MEDS: carvediloL 3.125 MG TABLET 6.25 MG PO (21:54)
[2021-10-19] MEDS: Ticagrelor 90 MG TABLET PO (21:54)
[2021-10-19] MEDS: Sennosides/Docusate Sodium TABLET 1 TAB PO (21:54)
[2021-10-19] MEDS: Atorvastatin Calcium 40 MG TABLET PO (21:54)
--- NOTE | 2021-10-19 22:00 | PC.NURSE ---
Pt medicated per DEC Pt tolerated well Pt [facility] Will continue to monitor
[2021-10-20] MEDS: 0.9 % Sodium Chloride 1,000 ML 75 ML IVCONT (01:15)
[2021-10-20 03:51] VITALS: BP 156/60; PULSE 98; RESP 20; TEMP 36.6; O2SAT 99
[2021-10-20] MEDS: Heparin Sodium,Porcine 5,000 UNIT/ML VIAL 5000 UNIT SUBCUT ×2 (03:56→13:42)
[2021-10-20 08:03] LABS: Anion Gap 11 (12-20); Blood Urea Nitrogen 38 mg/dL (9-16); Calcium 9.2 mg/dL (8.4-10.2); Carbon Dioxide 25 mmol/L (22-29); Chloride 108 mmol/L (96-108); Creatinine Clr Calc Pharmacy 40.8; Estimated Glomerular Filt Rate 59; Glucose Random 117 mg/dL (60-115); Potassium 4.1 mmol/L (3.3-5.1); Sodium 140 mmol/L (135-145)
[2021-10-20] MEDS: cefTRIAXone sodium 1 GM in 0.9 % Sodium Chloride 50 ML IV (08:40)
[2021-10-20] MEDS: polyethylene glycoL 3350 17 GM POWD.PACK PO (08:40)
[2021-10-20] MEDS: Aspirin Enteric Coated 81 MG TABLET.DR PO (08:41)
[2021-10-20] MEDS: Ticagrelor 90 MG TABLET PO ×2 (08:41→21:20)
[2021-10-20] MEDS: Ezetimibe 10 MG TABLET PO (08:41)
[2021-10-20] MEDS: Sennosides/Docusate Sodium TABLET 1 TAB PO ×2 (08:41→21:20)
[2021-10-20] MEDS: amLODIPine Besylate 5 MG TABLET PO (08:43)
[2021-10-20 08:44] VITALS: BP 193/76; PULSE 71; RESP 12; TEMP 36.7; O2SAT 96
[2021-10-20] MEDS: carvediloL 3.125 MG TABLET 6.25 MG PO (08:44)
--- NOTE | 2021-10-20 09:43 | PC.NURSE ---
linen changed, pt repositioned and cleaned up.
[2021-10-20] MEDS: lisinopriL 40 MG TABLET PO (10:16)
--- NOTE | 2021-10-20 12:52 | PC.NURSE ---
this Rn assumed care of pt at 11 am. pts fluids were not connected to pt. unknown amount of time off pt. fluids restarted to pt and pt additionally given a pitcher of water. pt wanting to speak to his , however there is no portable phone for pt to use. both phone and base ticketed for replacement.
--- NOTE | 2021-10-20 12:58 | P.PNIM_ITS ---
Subjective Subjective Date of Service: 10/20/21 Interval History: Patient wants to be discharged home, denies abdominal pain, no nausea no vomiting, had large bowel movement, no fevers no chills noted to have elevated WBC count, Edmondson with clear urine. Review of Systems Review of Systems: Yes all other systems are reviewed and are negative Physical Exam Vital Signs: Vital Signs: Last Vital Signs Temp 98.0 F 10/20/21 08:44 Pulse 71 10/20/21 08:44 Resp 12 10/20/21 08:44 BP 193/76 H 10/20/21 08:44 Pulse Ox 96 10/20/21 08:44 BMI result Body Mass Index 23.3 Constitutional - A wake and Alert, No apparent distress Neck is supple Ca rdiovascular -? S1 ,S2, RRR, No edema Respiratory - Nor mal respiratory ef fort, No respirato ry distress, CTA b ilaterally Gastroi ntestinal -?soft n ontender,+BS; No r ebound or guarding - No CVA tende rness; Edmondson with concentrated urine Extremities - no edema Skin - Warm/ Dry Neurological - ? Alert & oriented x3, No focal defi cit Psychological - Appropriate affe ct Objective Data Active Medications Acetaminophen (Acetaminophen 325 Mg Tablet) 650 mg PO Q6H PRN PRN Reason: Pain, Mild (Pain Scale 1-3) Last Admin: 10/19/21 19:42 Dose: 650 mg Documented by: WILLIAM Amlodipine Besylate (Amlodipine Besylate 5 Mg Tablet) 5 mg PO DAILY [facility]; Protocol Last Admin: 10/20/21 08:43 Dose: 5 mg Documented by: RIZWAN Aspirin (Aspirin Enteric Coated 81 Mg Tablet.Dr) 81 mg PO DAILY [facility] Last Admin: 10/20/21 08:41 Dose: 81 mg Documented by: RIZWAN Atorvastatin Calcium (Atorvastatin Calcium 40 Mg Tablet) 40 mg PO BEDTIME [facility] Last Admin: 10/19/21 21:54 Dose: 40 mg Documented by: WILLIAM Carvedilol (Carvedilol 3.125 Mg Tablet) 6.25 mg PO BID [facility]; Protocol Last Admin: 10/20/21 08:44 Dose: 6.25 mg Documented by: RIZWAN Ezetimibe (Ezetimibe 10 Mg Tablet) 10 mg PO DAILY [facility] Last Admin: 10/20/21 08:41 Dose: 10 mg Documented by: RIZWAN Heparin Sodium (Porcine) (Heparin Sodium,Porcine 5,000 Unit/Ml Vial) 5,000 unit SUBCUT Q12H [facility] Last Admin: 10/20/21 03:56 Dose: 5,000 unit Documented by: MICHAEL Sodium Chloride (Ns) 1,000 mls @ 75 mls/hr IVCONT .[id number] [facility] Last Admin: 10/20/21 01:15 Dose: 75 mls/hr Documented by: MICHAEL Ceftriaxone Sodium 1 gm/ (Sodium Chloride) 50 mls @ 100 mls/hr IV Q24H [facility] Last Infusion: 10/20/21 09:23 Dose: 0 mls/hr Documented by: RIZWAN Lisinopril (Lisinopril 40 Mg Tablet) 40 mg PO DAILY [facility]; Protocol Last Admin: 10/20/21 10:16 Dose: 40 mg Documented by: RIZWAN Non-Formulary Medication (Umeclidinium [Incruse Ellipta]) 1 puff INHALE DAILY [facility] Oxycodone HCl (Oxycodone Hcl Immed Release 5 Mg Tablet) 5 mg PO Q6H PRN PRN Reason: Pain, Severe (Pain Scale 7-10) Pharmacy Consult (Consult Rx Perform Med Rec) 1 each MISCELLANE ONCE PRN PRN Reason: Consult order Polyethylene Glycol (Polyethylene Glycol 3350 17 Gm Powd.Pack) 17 gm PO DAILY S Last Admin: 10/20/21 08:40 Dose: 17 gm Documented by: RIZWAN Senna/Docusate Sodium (Sennosides/Docusate Sodium Tablet) 1 tab PO BID [facility] Last Admin: 10/20/21 08:41 Dose: 1 tab Documented by: RIZWAN Sodium Chloride (0.9 % Sodium Chloride Flush 3 Ml Syringe) 3 ml IVFLUSH QSHIFT [facility] Last Admin: 10/20/21 08:44 Dose: Not Given Documented by: RIZWAN Non-Admin Reason: IV Running Ticagrelor (Ticagrelor 90 Mg Tablet) 90 mg PO BID [facility] Last Admin: 10/20/21 08:41 Dose: 90 mg Documented by: RIZWAN Timolol Maleate (Timolol Maleate 0.5 % Oph Kimberly 5 Ml Drbtl) 1 drop EYE-BOTH DAILY [facility] Last Admin: 10/20/21 10:19 Dose: Not Given Documented by: SARAH Non-Admin Reason: Patient Refused Labs CBC & Chem 7: 10/19/21 08:42 10/20/21 07:18 Labs: Laboratory Results - last 24 hr 10/20/21 07:18 Anion Gap 11 L Estim Creat Clear Calc 40.8 Estimated GFR 59 Random Glucose 117 H D Calcium 9.2 D Microbiology Microbiology Results: Microbiology 10/19/21 08:48 Blood Culture - Preliminary Blood - Venous No growth after 24 hours. 10/19/21 08:42 Blood Culture - Preliminary Blood - Venous No growth after 24 hours. 10/19/21 Unknown Urine Culture - Preliminary Urine Catheterized - Edmondson Catheter Gram negative jozef Assessment and Plan (1) COPD (chronic obstructive pulmonary disease): Status: Acute (2) Diabetes mellitus: Status: Acute (3) SONYA (acute kidney injury): Status: Acute (4) Acute UTI: Status: Acute (5) Constipation: Status: Acute Assessment and Plan: 85 yo M with a PMH of CAD - s/p stenting and CABG, 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 He has had poor oral intake and loss of apppetite. He is found to have SONYA and severe constipation. He will be admitted for further work up. 1. Acute Kidney Injury Resolved was likely related to poor oral intake while being on LULU inhibitor Will DC IV fluid Will DC Edmondson catheter give voiding trial 2. Severe constipation Likely due to narcotics, had large bowel movement Continue scheduled Miralax + Senna/Colace combo 3. CAD -? s/p CABG + Stents continue BB, statin, antiplatelets, statin/zetia 4. HTN Noted to have elevated blood pressure, continue norvasc + coreg will resume Zestril 40 mg daily 5. Acute UTI no urinary symptoms , noted to have pyuria urine culture growing Gram-negative rods continue IV Rocephin and follow final urine culture 6. Back pain due to compression fracture L1, placed on schedule Tylenol, add Miacalcin nasal spray, as needed oxycodone and add Lidoderm patch Code status full code DVT pptx, subcut. heparin Quality Stroke Does the patient have a stroke diagnosis?: No VTE Prior VTE?: No VTE Risk Level:: Medical - moderate - high VTE Device Contraindication: Treatment Not Indicated VTE Drug Contraindication: N/A - Med Ordered
[2021-10-20] MEDS: Lidocaine 4 % Patch ADH..PATCH 1 PATCH TRANSDERMA (13:41)
[2021-10-20] MEDS: Acetaminophen 325 MG TABLET 650 MG PO ×2 (13:42→21:21)
[2021-10-20] MEDS: Calcitonin,Salmon,Synth Nasal 3.7 ML BOTTLE 1 SPRAY NOSTRILALT (14:08)
[2021-10-20 15:06] VITALS: BP 134/60; PULSE 74
--- NOTE | 2021-10-20 15:10 | PC.NURSE ---
pt informed t/w that he plans to leave tonight, this RN informed the pt that he has a UTI is receiving antibiotics, remains in pain that we are managing with is fracture. informed Dr. Kunz that he wants to leave, pt would be leaving AMA. at this time Shannan notified of need for portable phone for pt use. if pt can talk with and she agrees to take him home, he will be able to sign out AMA
[2021-10-20] MEDS: 0.9 % Sodium Chloride Flush 3 ML SYRINGE IVFLUSH (17:28)
--- NOTE | 2021-10-20 17:31 | PC.NURSE ---
pt able to speak with his via portable phone who reported she wanted him to stay in the hospital. pt reported to t/w that he guesses he will stay in the hospital and continue treatment . dr Kunz notified.
--- NOTE | 2021-10-20 19:51 | PC.NURSE ---
pt up to bedside commode with 2x assist, pt did well with stand and pivot. had one small, soft bm
[2021-10-20] MEDS: Atorvastatin Calcium 40 MG TABLET PO (21:20)
[2021-10-20] MEDS: carvediloL 6.25 MG TABLET PO (21:20)
[2021-10-21] VITALS: BP 158/68; PULSE 64; RESP 16; TEMP 36.4; O2SAT 96
[2021-10-21 00:49] VITALS: BP 169/74; PULSE 65; RESP 18; TEMP 36.3; O2SAT 97
[2021-10-21] MEDS: Heparin Sodium,Porcine 5,000 UNIT/ML VIAL 5000 UNIT SUBCUT ×2 (01:34→15:29)
[2021-10-21 05:44] LABS: MANUAL DIFF FLAG NO
[2021-10-21 05:49] LABS: Basophils Percent Auto 0.2 % (0-2); Eosinophils Absolute Auto 0.2 X10*3/uL (0.0-0.4); Eosinophils Percent Auto 1.9 % (0-4); Hematocrit 31.4 % (42.0-52.0); Hemoglobin 10.4 g/dl (14.0-18.0); Imm Gran Abs Auto 0.03 X10*3/uL (0.00-0.03); Imm Gran Pct Auto 0.4 % (0.0-0.4); Lymphocytes Absolute Auto 0.5 X10*3/uL (1.2-4.9); Lymphocytes Percent Auto 6.1 % (20-40); Mean Corpuscular HGB Conc 33.1 g/dl (31.0-36.0); Mean Corpuscular Volume 93.5 fL (80.0-98.0); Mean Platelet Volume 8.8 fL (9.4-12.4); Monocytes Absolute Auto 0.6 X10*3/uL (0.1-1.2); Monocytes Percent Auto 7.2 % (2-11); Neutrophils Absolute Auto 7.1 x10*3/uL (2.0-8.3); Neutrophils Percent Auto 84.2 % (45-73); Platelet Count 235 X10*3/uL (160-400); Red Blood Count 3.36 X10*6/uL (4.60-5.80); Red Cell Distribution Width 13.6 % (11.0-16.0); White Blood Count 8.4 X10*3/uL (4.8-10.8)
[2021-10-21 06:26] LABS: Anion Gap 11 (12-20); Blood Urea Nitrogen 29 mg/dL (9-16); Calcium 9.2 mg/dL (8.4-10.2); Carbon Dioxide 26 mmol/L (22-29); Chloride 106 mmol/L (96-108); Creatinine Clr Calc Pharmacy 49.3; Estimated Glomerular Filt Rate > 60; Glucose Random 124 mg/dL (60-115); Potassium 3.9 mmol/L (3.3-5.1); Sodium 139 mmol/L (135-145)
[2021-10-21 08:00] VITALS: BP 117/67; RESP 18; TEMP 37.2; O2SAT 100
[2021-10-21] MEDS: Acetaminophen 325 MG TABLET 650 MG PO ×3 (09:10→22:11)
[2021-10-21] MEDS: Ezetimibe 10 MG TABLET PO (09:11)
[2021-10-21] MEDS: Sennosides/Docusate Sodium TABLET 1 TAB PO ×2 (09:11→22:10)
[2021-10-21] MEDS: amLODIPine Besylate 5 MG TABLET PO (09:11)
[2021-10-21] MEDS: lisinopriL 40 MG TABLET PO (09:12)
[2021-10-21] MEDS: Ticagrelor 90 MG TABLET PO ×2 (09:12→22:10)
[2021-10-21] MEDS: Aspirin Enteric Coated 81 MG TABLET.DR PO (09:12)
[2021-10-21] MEDS: carvediloL 6.25 MG TABLET PO ×2 (09:12→22:12)
[2021-10-21] MEDS: polyethylene glycoL 3350 17 GM POWD.PACK PO (09:14)
[2021-10-21] MEDS: Lidocaine 4 % Patch ADH..PATCH 1 PATCH TRANSDERMA (09:14)
[2021-10-21] MEDS: cefTRIAXone sodium 1 GM in 0.9 % Sodium Chloride 50 ML IV (11:04)
--- NOTE | 2021-10-21 14:03 | P.PNIM_ITS ---
Subjective Subjective Date of Service: 10/21/21 Interval History: Patient awake alert this morning does not know of place, appears confused, denies back pain, no other acute issues overnight, no fevers no chills. Review of Systems Review of Systems: Yes all other systems are reviewed and are negative Physical Exam Vital Signs: Vital Signs: Last Vital Signs Temp 99.0 F 10/21/21 08:00 Pulse 65 10/21/21 00:49 Resp 18 10/21/21 08:00 BP 117/67 10/21/21 08:00 Pulse Ox 100 10/21/21 08:00 BMI result Body Mass Index 23.3 Constitutional - Awake and Alert, No?apparent distress Neck is supple Cardiovascular -? S1,S2, RRR, No edema Respiratory - Normal respiratory effort, No respiratory distress, CTA bilaterally Gastrointestinal -?soft nontender,+BS; No rebound or guarding - No CVA tenderness Extremities - no edema Skin - Warm/Dry Neurological -?confused, not aware of place or time Psychological- poor insight Objective Data Active Medications Acetaminophen (Acetaminophen 325 Mg Tablet) 650 mg PO TID [facility] Last Admin: 10/21/21 09:10 Dose: 650 mg Documented by: ZAFAR Amlodipine Besylate (Amlodipine Besylate 5 Mg Tablet) 5 mg PO DAILY [facility]; Protocol Last Admin: 10/21/21 09:11 Dose: 5 mg Documented by: ZAFAR Aspirin (Aspirin Enteric Coated 81 Mg Tablet.) 81 mg PO DAILY [facility] Last Admin: 10/21/21 09:12 Dose: 81 mg Documented by: ZAFAR Atorvastatin Calcium (Atorvastatin Calcium 40 Mg Tablet) 40 mg PO BEDTIME [facility] Last Admin: 10/20/21 21:20 Dose: 40 mg Documented by: ANDREA Calcitonin [place] (Calcitonin,[place],Synth Nasal 3.7 Ml Bottle) 1 spray NOSTRILALT DAILY [facility] Last Admin: 10/21/21 10:11 Dose: Not Given Documented by: ZAFAR Non-Admin Reason: Patient Refused Carvedilol (Carvedilol 6.25 Mg Tablet) 6.25 mg PO BID [facility]; Protocol Last Admin: 10/21/21 09:12 Dose: 6.25 mg Documented by: ZAFAR Ezetimibe (Ezetimibe 10 Mg Tablet) 10 mg PO DAILY [facility] Last Admin: 10/21/21 09:11 Dose: 10 mg Documented by: ZAFAR Heparin Sodium (Porcine) (Heparin Sodium,Porcine 5,000 Unit/Ml Vial) 5,000 unit SUBCUT Q12H [facility] Last Admin: 10/21/21 01:34 Dose: 5,000 unit Documented by: HINA Ceftriaxone Sodium 1 gm/ (Sodium Chloride) 50 mls @ 100 mls/hr IV Q24H [facility] Last Infusion: 10/21/21 12:47 Dose: 0 mls/hr Documented by: ZAFAR Lidocaine (Lidocaine 4 % Patch Adh..Patch) 1 patch TRANSDERMA DAILY [facility]; Protocol Last Admin: 10/21/21 09:14 Dose: 1 patch Documented by: ZAFAR Lisinopril (Lisinopril 40 Mg Tablet) 40 mg PO DAILY [facility]; Protocol Last Admin: 10/21/21 09:12 Dose: 40 mg Documented by: ZAFAR Oxycodone HCl (Oxycodone Hcl Immed Release 5 Mg Tablet) 5 mg PO Q6H PRN PRN Reason: Pain, Severe (Pain Scale 7-10) Pharmacy Consult (Consult Rx Perform Med Rec) 1 each MISCELLANE ONCE PRN PRN Reason: Consult order Polyethylene Glycol (Polyethylene Glycol 3350 17 Gm Powd.Pack) 17 gm PO DAILY [facility] Last Admin: 10/21/21 09:14 Dose: 17 gm Documented by: ZAFAR Senna/Docusate Sodium (Sennosides/Docusate Sodium Tablet) 1 tab PO BID [facility] Last Admin: 10/21/21 09:11 Dose: 1 tab Documented by: ZAFAR Sodium Chloride (0.9 % Sodium Chloride Flush 3 Ml Syringe) 3 ml IVFLUSH QSHIFT [facility] Last Admin: 10/21/21 10:14 Dose: Not Given Documented by: ZAFAR Non-Admin Reason: No Access Ticagrelor (Ticagrelor 90 Mg Tablet) 90 mg PO BID [facility] Last Admin: 10/21/21 09:12 Dose: 90 mg Documented by: ZAFAR Timolol Maleate (Timolol Maleate 0.5 % Oph [place] 5 Ml Drbtl) 1 drop EYE-BOTH DAILY [facility] Last Admin: 10/21/21 10:11 Dose: Not Given Documented by: HO.KODOSOB Non-Admin Reason: Patient Refused Tiotropium [place] (Tiotropium [place] 18 Mcg Cap.W.Dev) 1 puff INHALE RDAILY [facility] Last Admin: 10/21/21 08:33 Dose: Not Given Documented by: TONIO Non-Admin Reason: Med Not Available Labs CBC & Chem 7: 10/21/21 05:13 10/21/21 05:13 Labs: Laboratory Results - last 24 hr 10/21/21 10/21/21 05:13 05:13 MCV 93.5 MCH 31.0 MCHC 33.1 RDW 13.6 Plt Count 235 MPV 8.8 L Immature Gran % (Auto) 0.4 Neut % (Auto) 84.2 H Lymph % (Auto) 6.1 L [place] % (Auto) 7.2 Eos % (Auto) 1.9 Baso % (Auto) 0.2 Lymph # (Auto) 0.5 L [place] # (Auto) 0.6 Eos # (Auto) 0.2 Baso # (Auto) 0.0 Abs Immat Gran (auto) 0.03 Absolute Neuts (auto) 7.1 Absolute Nucleated RBC 0.000 Nucleated RBC % (auto) 0.0 Anion Gap 11 L Estim Creat Clear Calc 49.3 Estimated GFR > 60 Random Glucose 124 H Calcium 9.2 Microbiology Microbiology Results: Microbiology 10/19/21 08:48 Blood Culture - Preliminary Blood - Venous No growth after 48 hours. 10/19/21 08:42 Blood Culture - Preliminary Blood - Venous No growth after 48 hours. 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 He has had poor oral intake and loss of apppetite. He is found to have SONYA and severe constipation. He will be admitted for further work up. 1. Acute Kidney Injury Resolved was likely related to poor oral intake Will DC IV fluid 2. Severe constipation Likely due to narcotics, resolved, had large bowel movement Continue scheduled Miralax + Senna/Colace combo 3. CAD -? s/p CABG + Stents continue BB, statin, antiplatelets, statin/zetia 4. HTN Blood pressure is stable continue home medication norvasc + coreg and Zestril 40 mg daily 5. Acute UTI Urine culture growing Klebsiella, ESBL negative sensitive to ceftriaxone, con tinue IV ceftriaxone day 3 transition to by mouth Ceftin 250 mg b.i.d. upon discharge 6. Back pain due to compression fracture L1, patient denies back pain today continue schedule Tylenol, Miacalcin nasal spray, and Lidoderm patch, minimize use of oxycodone due to confusion 7. 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 no acute neuro deficit speech clear, continue neuro checks 8. Disposition history of recent fall at home with confusion will obtain PT OT for discharge plan. DC Edmondson at a.m. and give voiding trial Code status full code DVT pptx, subcut. heparin Quality Stroke Does the patient have a stroke diagnosis?: No VTE Prior VTE?: No VTE Risk Level:: Medical - moderate - high VTE Device Contraindication: Treatment Not Indicated VTE Drug Contraindication: N/A - Med Ordered
[2021-10-21] MEDS: 0.9 % Sodium Chloride Flush 3 ML SYRINGE IVFLUSH ×2 (15:29→20:28)
[2021-10-21 15:35] VITALS: BP 199/69; PULSE 100; RESP 20; TEMP 36.9; O2SAT 98
[2021-10-21] MEDS: Atorvastatin Calcium 40 MG TABLET PO (22:11)
[2021-10-22] VITALS: BP 152/58; PULSE 57; RESP 20; TEMP 36.2; O2SAT 94
[2021-10-22] MEDS: Heparin Sodium,Porcine 5,000 UNIT/ML VIAL 5000 UNIT SUBCUT ×2 (02:54→14:57)
[2021-10-22 07:39] VITALS: BP 180/75; PULSE 56; RESP 17; TEMP 36.3; O2SAT 96
[2021-10-22] MEDS: cefTRIAXone sodium 1 GM in 0.9 % Sodium Chloride 50 ML IV (08:00)
[2021-10-22] MEDS: Lidocaine 4 % Patch ADH..PATCH 1 PATCH TRANSDERMA (08:01)
[2021-10-22] MEDS: 0.9 % Sodium Chloride Flush 3 ML SYRINGE IVFLUSH ×3 (08:01→19:36)
[2021-10-22] MEDS: polyethylene glycoL 3350 17 GM POWD.PACK PO (08:01)
[2021-10-22] MEDS: oxyCODONE HCl Immed Release 5 MG TABLET PO (08:01)
[2021-10-22] MEDS: Calcitonin,Salmon,Synth Nasal 3.7 ML BOTTLE 1 SPRAY NOSTRILALT (08:03)
[2021-10-22] MEDS: amLODIPine Besylate 5 MG TABLET PO (08:04)
[2021-10-22] MEDS: Aspirin Enteric Coated 81 MG TABLET.DR PO (08:04)
[2021-10-22] MEDS: timoloL maleate 0.5 % Oph Sol 5 ML DRBTL 1 DROP EYE-BOTH (08:04)
[2021-10-22] MEDS: Ticagrelor 90 MG TABLET PO ×2 (08:04→19:35)
[2021-10-22] MEDS: Sennosides/Docusate Sodium TABLET 1 TAB PO ×2 (08:04→19:34)
[2021-10-22] MEDS: carvediloL 6.25 MG TABLET PO ×2 (08:04→19:35)
[2021-10-22] MEDS: lisinopriL 40 MG TABLET PO (08:04)
[2021-10-22] MEDS: Acetaminophen 325 MG TABLET 650 MG PO ×3 (08:04→19:35)
[2021-10-22] MEDS: Ezetimibe 10 MG TABLET PO (08:04)
[2021-10-22 08:50] VITALS: PULSE 56; O2SAT 96
--- NOTE | 2021-10-22 10:53 | MHC.CM.PN ---
Addendum entered by Eveline Ramos 10/22/21 13:24: DISCHARGED HOME TODAY PLANNED AFTER VOIDING ([facility] REMOVED TODAY). NEW REF, TO [facility]ED AND WILL FOLLOW FOR NRUSING FOR DIAGNOSIS AND SIN AND SYMPTOM MANAGEMENT MEDICATION RECONCILATION AND HOME PHYSICAL THERAPY PCP PATIENT / TO CALL FOR HOME [facility] DISCHARGE TRANSPORTATION FAMILY Original Note: nurse casey saw operator npt3 electronic medial record rwviewed along with case diacussed with darrius nurse, met with patient , he confirmed he goes to the [facility] in [place] yearly confir,ed that he had his covid vaccinations x2 the moderna , but has not had his booster as yet, he is independent in all adls and mobility with the use of a cane , . he does not feelm he will need any vna services when he goes home but if orered by the hospitalist he would accept. for nursing and possbibly home pt/ discharge plan home with new vna (referrals niated )for nursing and possible home pt pcp dr naveen rojas transportation family requestd someone bring in copy of the hcp. medicare imm expalined and left at bedside . he has a hcp and as rewquested will ask someione to bring in a copy. he lives with his , hr currently has no vna , no personal fitness trainer or home health srvices and no dme services in the home, he continues to drive a car confirmed his pcp dr naveen rojas
[2021-10-22] MEDS: Milk of Magnesia 30 ML ORAL.SUSP PO (12:40)
--- NOTE | 2021-10-22 15:45 | P.DS_ITS ---
DS: Providers Provider Date of admission: 10/19/21 12:58 Primary care physician: Unknown Physician DS: Diagnosis Discharge Diagnosis (1) Acute encephalopathy: Status: Acute (2) COPD (chronic obstructive pulmonary disease): Status: Acute (3) Diabetes mellitus: Status: Acute (4) DAVID (acute kidney injury): Status: Acute (5) Acute UTI: Status: Acute (6) Constipation: Status: Acute DS: Summary Hospital Course Hospital Course: Chief Complaint: constipation and abdominal pain This is an 85 yo M with multiple medical issues as outlined below who presents to the emergency room with complaints of abdominal pain (several days duration) and constipation (about 1 week) without any associated nausea and vomiting but with loss of appetite and poor oral intake. The patient [place] [facility] [place] sustaining a mechanical fall which resulted in a compression fracture of the L1/L2 vertebrae. He was discharged home on oral pain control and now returns about 2 weeks later with the prior mentioned symptoms. History if obtained from him as well as his (and HCP) Kayla Isidro over the phone. She reports that he has been in agonizing pain the last several days and not eaten much so at her urging, he came to the ED. In the ED, a CT scan of the abdomen showed a large stool burden. His BMP showed DAVID. His UA was suggestive of possible UTI. He was given IVF, IV antibiotics, a Edmondson catheter was placed and he will be admitted for further treatment. 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 She reports that he is getting a chemo infusion every 3 weeks currently.? COVID Vaccination Status: Received 2 dose moderna series + booster. Hospital course 85 yo M with a PMH of CAD - s/p stenting and CABG, Active Cancer (? Throat) re ceiving infusion q3 weeks, recent fall resulting in a lumbar fx, who presents to the hospital with a several day history of abodminal pain and about a 1 week history of constipation, with poor oral intake and loss of apppetite, workup in the ER showed acute renal failure and constipation, patient admitted to medical floor treated with IV fluids and laxatives, renal function normalized and patient had a bowel movement, patient was noted to have urinary tract infection therefore treated with IV ceftriaxone urine culture grew Klebsiella, patient remains asymptomatic and afebrile therefore antibiotic transition to by mouth Ceftin for total 10 days, in regard to back pain due to L1 compression fracture, patient treated with Tylenol, Lidoderm patch and oxycodone, he has been recommended to use oxycodone only for severe pain due to side effect of constipation and confusion, patient was noted to be confused likely due to acute encephalopathy with underlying infection and David , confusion seems to have resolved and he seems to be at baseline case discussed with patient it seems for last few months he has been noticed to be confused at home likely due to undiagnosed vascular dementia since CT head on 10/05 showed 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 Due to weakness, unsteady gait patient was evaluated by Physical therapy and they are recommending home with services. In regard to hypertension patient was noted to have elevated blood pressure with few low blood pressure readings patient is on multiple antihypertensive including Norvasc, Coreg and Zestril , elevated BP likely due to anxiety and infection recommend outpatient follow-up with PCP. In regard to coronary artery disease status post CABG continue home medications including beta blockers, statins and anti platelet agents Time Spent with Patient Time attestation: Total time spent providing and/or coordinating discharge services: Physical Exam Vital Signs: Vital Signs: Last Vital Signs Temp 97.4 F 10/22/21 07:39 Pulse 56 10/22/21 08:50 Resp 17 10/22/21 07:39 BP 180/75 H 10/22/21 07:39 Pulse Ox 96 10/22/21 08:50 BMI result Body Mass Index 23.3 Constitutional - Awake and Alert, No?apparent distress Neck is supple Cardiovascular -? S1,S2, RRR, No edema Respiratory - Normal respiratory effort, No respiratory distress, CTA bilaterally Gastrointestinal -?soft nontender,+BS; No rebound or guarding - No CVA tenderness Extremities - no edema Skin - Warm/Dry Neurological -awake alert answering questions appropriately, following directions DS: Data Data Completed and Pending Labs on day of discharge: Preliminary micro results at discharge 10/19/21 08:48 Blood Culture - Preliminary Blood - Venous No growth after 48 hours. 10/19/21 08:42 Blood Culture - Preliminary Blood - Venous No growth after 48 hours. Discharge Plan Discharge Patient Disposition: Home Health Service Discharge Diagnosis: Acute kidney injury Severe constipation UTI Back pain due to L1 compression fracture Referrals: [facility] [Other] - 1 Day (REQUESTED NURSING FOR DIAGNOSSI SIGN SYMPTOM MANAGEMENT AND MEDICATION RECONCILATION AND HOME PHYSICAL THERAPY. PCP PATIENT/ TO CALL FOR [facility] DISCHAR[facility] FOLLOW UP TRANSPORTSTION FAMILY ) Physician,Unknown J [Primary Care Provider] - 1 Week Discharge Medications: New polyethylene glycol 3350 17 gram Powder In Packet 17 g PO DAILY Qty: 30 RF: 0 lidocaine [Lidocaine Pain Relief] 4 % Adhesive Patch,Medicated 1 patch transdermal DAILY Qty: 4 RF: 0 sennosides-docusate sodium [Senna Plus] 8.6-50 mg Tablet 1 tab PO BID Qty: 30 RF: 0 acetaminophen 325 mg Tablet 650 mg PO TID Qty: 60 RF: 0 cefuroxime axetil 250 mg tablet 250 mg PO BID 6 Days Qty: 12 RF: 0 tamsulosin 0.4 mg Capsule 0.4 mg PO BEDTIME Qty: 30 RF: 0 Continued oxycodone 5 mg tablet 5 mg PO BID PRN (Reason: pain) Qty: 20 RF: 0 atorvastatin 40 mg tablet 1 tab PO BEDTIME RF: 0 carvedilol 12.5 mg tablet 6.25 mg PO BID RF: 0 amlodipine 5 mg tablet 1 tab PO DAILY RF: 0 timolol maleate 0.5 % drops 1 drp ophthalmic (eye) DAILY RF: 0 lisinopril 40 mg tablet 1 tab PO DAILY RF: 0 ezetimibe 10 mg tablet 1 tab PO DAILY RF: 0 Brilinta 90 mg tablet 1 tab PO BID RF: 0 Incruse Ellipta 62.5 mcg/actuation blister with device 1 puff inhalation DAILY RF: 0 aspirin 81 mg Tablet,Delayed Release (Dr/Ec) 81 mg PO DAILY RF: 0 Discontinued indapamide 1.25 mg tablet 1 tab PO DAILY RF: 0 Diet: low fat, low cholesterol Activity on Discharge: As tolerated Stand Alone Forms: Patient Portal Discharge page Care Plan Goals: Acute kidney injury resolved hold indapamide and resume after discussion with primary care physician In regard to back pain take Tylenol scheduled 3 times a day, use Lidoderm patch and use oxycodone only for severe pain In regard to constipation take MiraLax daily and senna Plus, hold senna Plus if noted to have diarrhea Health Concerns: Mild cognitive impairment/hyperlipidemia/ back pain take all home medications as before. Plan of Treatment: Follow-up with primary care physician in 1 week Assessment: Per discharge summary
--- NOTE | 2021-10-22 15:56 | P.PNIM_ITS ---
Subjective Subjective Date of Service: 10/22/21 Interval History: Patient awake alert answering questions appropriately, complaining of straining for bowel movement but with no result, denies fever chills, complaining of mild back pain, otherwise no other acute issues overnight, no headache, no dizziness, participated with physical therapy Review of Systems Review of Systems: Yes all other systems are reviewed and are negative Physical Exam Vital Signs: Vital Signs: Last Vital Signs Temp 97.4 F 10/22/21 07:39 Pulse 56 10/22/21 08:50 Resp 17 10/22/21 07:39 BP 180/75 H 10/22/21 07:39 Pulse Ox 96 10/22/21 08:50 BMI result Body Mass Index 23.3 Constitutional - Awake and Alert, No?apparent distress Neck is supple Cardiovascular -? S1,S2, RRR, No edema Respiratory - Normal respiratory effort, No respiratory distress, CTA bilaterally Gastrointestinal -?soft nontender,+BS; No rebound or guarding - No CVA tenderness Extremities - no edema Skin - Warm/Dry Neurological -?awake alert answering questions appropriately, nonfocal exam Objective Data Active Medications Acetaminophen (Acetaminophen 325 Mg Tablet) 650 mg PO TID [facility] Last Admin: 10/22/21 14:57 Dose: 650 mg Documented by: DEMI Amlodipine Besylate (Amlodipine Besylate 5 Mg Tablet) 5 mg PO DAILY [facility]; Protocol Last Admin: 10/22/21 08:04 Dose: 5 mg Documented by: YANA Aspirin (Aspirin Enteric Coated 81 Mg Tablet.) 81 mg PO DAILY [facility] Last Admin: 10/22/21 08:04 Dose: 81 mg Documented by: YANA Atorvastatin Calcium (Atorvastatin Calcium 40 Mg Tablet) 40 mg PO BEDTIME [facility] Last Admin: 10/21/21 22:11 Dose: 40 mg Documented by: HINA Calcitonin [place] (Calcitonin,[place],Synth Nasal 3.7 Ml Bottle) 1 spray NOSTRILALT DAILY [facility] Last Admin: 10/22/21 08:03 Dose: 1 spray Documented by: YANA Carvedilol (Carvedilol 6.25 Mg Tablet) 6.25 mg PO BID [facility]; Protocol Last Admin: 10/22/21 08:04 Dose: 6.25 mg Documented by: YANA Ezetimibe (Ezetimibe 10 Mg Tablet) 10 mg PO DAILY [facility] Last Admin: 10/22/21 08:04 Dose: 10 mg Documented by: YANA Heparin Sodium (Porcine) (Heparin Sodium,Porcine 5,000 Unit/Ml Vial) 5,000 unit SUBCUT Q12H [facility] Last Admin: 10/22/21 14:57 Dose: 5,000 unit Documented by: DEMI Ceftriaxone Sodium 1 gm/ (Sodium Chloride) 50 mls @ 100 mls/hr IV Q24H [facility] Last Infusion: 10/22/21 09:11 Dose: 0 mls/hr Documented by: DEMI Lidocaine (Lidocaine 4 % Patch Adh..Patch) 1 patch TRANSDERMA DAILY [facility]; Protocol Last Admin: 10/22/21 08:01 Dose: 1 patch Documented by: YANA Lisinopril (Lisinopril 40 Mg Tablet) 40 mg PO DAILY [facility]; Protocol Last Admin: 10/22/21 08:04 Dose: 40 mg Documented by: YANA Oxycodone HCl (Oxycodone Hcl Immed Release 5 Mg Tablet) 5 mg PO Q12H PRN PRN Reason: Pain, Severe (Pain Scale 7-10) Last Admin: 10/22/21 08:01 Dose: 5 mg Documented by: YANA Pharmacy Consult (Consult Rx Perform Med Rec) 1 each MISCELLANE ONCE PRN PRN Reason: Consult order Polyethylene Glycol (Polyethylene Glycol 3350 17 Gm Powd.Pack) 17 gm PO DAILY [facility] Last Admin: 10/22/21 08:01 Dose: 17 gm Documented by: YANA Senna/Docusate Sodium (Sennosides/Docusate Sodium Tablet) 1 tab PO BID [facility] Last Admin: 10/22/21 08:04 Dose: 1 tab Documented by: YANA Sodium Chloride (0.9 % Sodium Chloride Flush 3 Ml Syringe) 3 ml IVFLUSH QSHIFT [facility] Last Admin: 10/22/21 08:01 Dose: 3 ml Documented by: YANA Tamsulosin HCl (Tamsulosin Hcl 0.4 Mg Capsule) 0.4 mg PO BEDTIME [facility] Ticagrelor (Ticagrelor 90 Mg Tablet) 90 mg PO BID [facility] Last Admin: 10/22/21 08:04 Dose: 90 mg Documented by: YANA Timolol Maleate (Timolol Maleate 0.5 % Oph [place] 5 Ml Drbtl) 1 drop EYE-BOTH DAILY [facility] Last Admin: 10/22/21 08:04 Dose: 1 drop Documented by: YANA Tiotropium [place] (Tiotropium [place] 18 Mcg Cap.W.Dev) 1 puff INHALE RDAILY [facility] Last Admin: 10/22/21 08:43 Dose: Not Given Documented by: BRADY Non-Admin Reason: Med Not Available Labs CBC & Chem 7: 10/21/21 05:13 10/21/21 05:13 Assessment and Plan (1) Acute encephalopathy: Status: Acute (2) COPD (chronic obstructive pulmonary disease): Status: Acute (3) Diabetes mellitus: Status: Acute (4) SONYA (acute kidney injury): Status: Acute (5) Acute UTI: Status: Acute (6) Constipation: Status: Acute (7) Back pain: Status: Acute Assessment and Plan: 85 yo M with a PMH of CAD - s/p stenting and CABG, 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 He has had poor oral intake and loss of apppetite. He is found to have SONYA and severe constipation. He will be admitted for further work up. 1. Acute Kidney Injury Resolved ,s/p ivf was likely related to poor oral intake 2. Severe constipation Likely due to narcotics, had large bowel movement after laxatives, this morning having difficulty moving bowels therefore give milk of Mag, with no result will give enema,Continue scheduled Miralax + Senna/Colace combo 3. CAD -? s/p CABG + Stents continue BB, statin, antiplatelets, statin/zetia 4. HTN high blood pressure reading alternating with soft blood pressure, continue home medication norvasc + coreg and Zestril 40 mg daily, blood pressure due to being in hospital and anxiety, recommend outpatient follow-up 5. Acute UTI Urine culture growing Klebsiella, ESBL negative sensitive to ceftriaxone, continue IV ceftriaxone day 4 transition to by mouth Ceftin 250 mg b.i.d. upon discharge for total 10 days 6. Back pain due to compression fracture L1,c/o mild back pain today continue schedule Tylenol, Miacalcin nasal spray, and Lidoderm patch, minimize use of oxycodone due to constipation and confusion 7. 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 ? volume loss Acute confusion resolved, seems to be at baseline, spoke with patient has been noted to be mildly confused in last few months ? ? Renal function normalized , normal liver enzymes and electrolytes, continue to treat infection ? ? no acute neuro deficit speech clear ? ? 8. Urinary retention was placed on Edmondson catheter, will start patient on Flomax 0.4 mg at bedtime, DC Edmondson and give voiding trial Disposition seen by physical therapy they recommend home with services, Edmondson catheter removed waiting for voiding , also give enema if patient have a bowel movement and void will be discharged home with VNA services Called and informed about discharge plan Code status full code DVT pptx, subcut. heparin Quality Stroke Does the patient have a stroke diagnosis?: No VTE Prior VTE?: No VTE Risk Level:: Medical - moderate - high VTE Device Contraindication: Treatment Not Indicated VTE Drug Contraindication: N/A - Med Ordered
[2021-10-22 16:00] VITALS: BP 151/69; PULSE 70; RESP 18; TEMP 36.7; O2SAT 99
[2021-10-22] MEDS: Tamsulosin HCL 0.4 MG CAPSULE PO (19:35)
[2021-10-22] MEDS: Atorvastatin Calcium 40 MG TABLET PO (19:35)
[2021-10-22 19:42] VITALS: BP 140/60; PULSE 82
[2021-10-23] VITALS: BP 140/64; PULSE 64; RESP 16; TEMP 36.2; O2SAT 95
[2021-10-23] MEDS: Heparin Sodium,Porcine 5,000 UNIT/ML VIAL 5000 UNIT SUBCUT ×2 (01:49→14:29)
[2021-10-23 04:00] VITALS: BP 169/74; PULSE 67; RESP 16; TEMP 36.8; O2SAT 97
--- NOTE | 2021-10-23 05:30 | PC.NURSE ---
Pt hasnt voided since Edmondson was out yesterday afternoon, Bladder cxta=016 ml, pt is trying to urinate on the urinal, Dr. Blackmon was made aware and said its ok for now and to hold on straight cath.
[2021-10-23 07:21] VITALS: BP 166/72; PULSE 64; RESP 18; TEMP 36.3; O2SAT 97
[2021-10-23] MEDS: Lidocaine 4 % Patch ADH..PATCH 1 PATCH TRANSDERMA (08:53)
[2021-10-23] MEDS: cefTRIAXone sodium 1 GM in 0.9 % Sodium Chloride 50 ML IV (08:53)
[2021-10-23] MEDS: lisinopriL 40 MG TABLET PO (08:54)
[2021-10-23] MEDS: Ticagrelor 90 MG TABLET PO (08:54)
[2021-10-23] MEDS: Acetaminophen 325 MG TABLET 650 MG PO ×2 (08:54→14:29)
[2021-10-23] MEDS: Ezetimibe 10 MG TABLET PO (08:54)
[2021-10-23] MEDS: carvediloL 6.25 MG TABLET PO (08:54)
[2021-10-23] MEDS: Aspirin Enteric Coated 81 MG TABLET.DR PO (08:54)
[2021-10-23] MEDS: amLODIPine Besylate 5 MG TABLET PO (08:54)
[2021-10-23] MEDS: Calcitonin,Salmon,Synth Nasal 3.7 ML BOTTLE 1 SPRAY NOSTRILALT (08:55)
[2021-10-23] MEDS: 0.9 % Sodium Chloride Flush 3 ML SYRINGE IVFLUSH (08:55)
[2021-10-23] MEDS: timoloL maleate 0.5 % Oph Sol 5 ML DRBTL 1 DROP EYE-BOTH (08:55)
[2021-10-23 09:40] LABS: Hematocrit 31.4 % (42.0-52.0); Hemoglobin 10.4 g/dl (14.0-18.0)
[2021-10-23 10:22] VITALS: BP 166/72; PULSE 64; O2SAT 97
[2021-10-23 11:31] VITALS: BP 113/73; PULSE 59; RESP 20; TEMP 36.2; O2SAT 97
--- NOTE | 2021-10-23 13:42 | PM.DS ---
DS: Providers Provider Date of Service: 10/23/21 Date of admission: 10/19/21 12:58 Primary care physician: Unknown Physician Admitting clinician: Rj Null Consults: 10/23/21 09:37 Consult to Urology Routine Consulting Provider: Pierre Smart Reason for consultation: urinary retention Has provider been notified: No DS: Diagnosis Discharge Diagnosis (1) Acute encephalopathy: Status: Acute (2) COPD (chronic obstructive pulmonary disease): Status: Acute (3) Diabetes mellitus: Status: Acute (4) SONYA (acute kidney injury): Status: Acute (5) Acute UTI: Status: Acute (6) Constipation: Status: Acute (7) Back pain: Status: Acute DS: Summary Hospital Course Hospital Course: Chief Complaint: constipation and abdominal pain This is an 85 yo M with multiple medical issues as outlined below who presents to the emergency room with complaints of abdominal pain (several days duration) and constipation (about 1 week) without any associated nausea and vomiting but with loss of appetite and poor oral intake. The patient presented to [facility] after sustaining a mechanical fall which resulted in a compression fracture of the L1/L2 vertebrae. He was discharged home on oral pain control and now returns about 2 weeks later with the prior mentioned symptoms. History if obtained from him as well as his (and HCP) Kayla Isidro over the phone. She reports that he has been in agonizing pain the last several days and not eaten much so at her urging, he came to the ED. In the ED, a CT scan of the abdomen showed a large stool burden. His BMP showed SONYA. His UA was suggestive of possible UTI. He was given IVF, IV antibiotics, a Vidal catheter was placed and he will be admitted for further treatment. 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 She reports that he is getting a chemo infusion every 3 weeks currently.? COVID Vaccination Status: Received 2 dose moderna series + booster. Hospital course 85 yo M with a PMH of CAD - s/p stenting and CABG, Active Cancer (? Throat) receiving infusion q3 weeks, recent fall resulting in a lumbar fx, who presents to the hospital with a several day history of abodminal pain and about a 1 week history of constipation, with poor oral intake and loss of apppetite, workup in the ER showed acute renal failure and constipation, patient admitted to medical floor treated with IV fluids and laxatives, renal function normalized and patient had a bowel movement, patient was noted to have urinary tract infection therefore treated with IV ceftriaxone urine culture grew Klebsiella, patient remains asymptomatic and afebrile therefore antibiotic transition to by mouth Ceftin for total 10 days, in regard to back pain due to L1 compression fracture, patient treated with Tylenol, Lidoderm patch and oxycodone, he has been recommended to use oxycodone only for severe pain due to side effect of constipation and confusion, patient was noted to be confused likely due to acute encephalopathy with underlying infection and Sonya , confusion seems to have resolved and he seems to be at baseline case discussed with patient it seems for last few months he has been noticed to be confused at home likely due to undiagnosed vascular dementia since CT head on 10/05 showed 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 Due to weakness, unsteady gait patient was evaluated by Physical therapy and they are recommending home with services. In regard to hypertension patient was noted to have elevated blood pressure with few low blood pressure readings patient is on multiple antihypertensive including Norvasc, Coreg and Zestril , elevated BP likely due to anxiety and infection recommend outpatient follow-up with PCP. patient has urinary retention started on Flomax, still retaining urine so Vidal was placed - patient is to follow up outpatient with Urology. In regard to coronary artery disease status post CABG continue home medications including beta blockers, statins and anti platelet agents Above management discussed with the patient in detail length he understand and in agreement with the above plan, time spent 50 minutes and 50% time spent on counseling. Significant findings: As above. Procedures performed: None. Treatment and response: As above. Complications: None. Time Spent with Patient Time attestation: Total time spent providing and/or coordinating discharge services: Discharge coordination time: Greater than 30 minutes Quality: Stroke Does the patient have a stroke diagnosis?: No Physical Exam Vital Signs: Vital Signs: Last Vital Signs Temp 97.2 F 10/23/21 11:31 Pulse 59 10/23/21 11:31 Resp 20 10/23/21 11:31 BP 113/73 10/23/21 11:31 Pulse Ox 97 10/23/21 11:31 BMI result Body Mass Index 23.3 Constitutional - Awake and Alert, No?apparent distress Neck is supple Cardiovascular -? S1,S2, RRR, No edema Respiratory - Normal respiratory effort, No respiratory distress, CTA bilaterally Gastrointestinal -?soft nontender,+BS; No rebound or guarding - No CVA tenderness, has vidal due to urinary retention Extremities - no edema Skin - Warm/Dry Neurological -awake alert answering questions appropriately, following directions ? DS: Data Data Completed and Pending Labs on day of discharge: Laboratory Results - last 24 hr 10/23/21 09:23 Hgb 10.4 L Hct 31.4 L Preliminary micro results at discharge 10/19/21 08:48 Blood Culture - Preliminary Blood - Venous No growth after 48 hours. 10/19/21 08:42 Blood Culture - Preliminary Blood - Venous No growth after 48 hours. Additional Comments Additional comments: CT/CT abdomen pelvis wo con IMPRESSION: There is no acute finding here. ? Moderate to marked rectosigmoid stool with more moderate stool throughout the remainder the colon. ? No suspicious fluid collection. ? Gallstones. ? Compression injury at L1 which is age indeterminate but seen on plain films from 10/05/2021. Some retropulsion of posterior cortex into the region of the canal.? ? Fleischner guidelines were followed. Discharge Plan Discharge Patient Disposition: Home Health Service Discharge Diagnosis: Acute kidney injury Severe constipation UTI Back pain due to L1 compression fracture Referrals: [facility] [Other] - 1 Day (REQUESTED NURSING FOR DIAGNOSSI SIGN SYMPTOM MANAGEMENT AND MEDICATION RECONCILATION AND HOME PHYSICAL THERAPY. PCP PATIENT/ TO CALL FOR [facility] DISCHARGE FOLLOW UP TRANSPORTSTION FAMILY ) Pierre Smart MD [Physician] - 1 Week (follow up outpatiently.) Physician,Kurt J [Primary Care Provider] - 1 Week Discharge Medications: New polyethylene glycol 3350 17 gram Powder In Packet 17 g PO DAILY Qty: 30 RF: 0 sennosides-docusate sodium [Senna Plus] 8.6-50 mg Tablet 1 tab PO BID Qty: 30 RF: 0 cefuroxime axetil 250 mg tablet 250 mg PO BID 6 Days Qty: 12 RF: 0 acetaminophen 325 mg Tablet 650 mg PO TID Qty: 60 RF: 0 lidocaine [Lidocaine Pain Relief] 4 % Adhesive Patch,Medicated 1 patch transdermal DAILY Qty: 4 RF: 0 tamsulosin 0.4 mg Capsule 0.8 mg PO BEDTIME Qty: 60 RF: 0 Continued oxycodone 5 mg tablet 5 mg PO BID PRN (Reason: pain) Qty: 20 RF: 0 atorvastatin 40 mg tablet 1 tab PO BEDTIME RF: 0 carvedilol 12.5 mg tablet 6.25 mg PO BID RF: 0 amlodipine 5 mg tablet 1 tab PO DAILY RF: 0 timolol maleate 0.5 % drops 1 drp ophthalmic (eye) DAILY RF: 0 lisinopril 40 mg tablet 1 tab PO DAILY RF: 0 ezetimibe 10 mg tablet 1 tab PO DAILY RF: 0 Brilinta 90 mg tablet 1 tab PO BID RF: 0 Incruse Ellipta 62.5 mcg/actuation blister with device 1 puff inhalation DAILY RF: 0 aspirin 81 mg Tablet,Delayed Release (Dr/Ec) 81 mg PO DAILY RF: 0 Discontinued indapamide 1.25 mg tablet 1 tab PO DAILY RF: 0 Discharge Orders: Discharge Order (Routine); Ordered 10/23/21 Ordered By: Rj Null Diet: low fat, low cholesterol Activity on Discharge: As tolerated Stand Alone Forms: Patient Portal Discharge page Care Plan Goals: Acute kidney injury resolved hold indapamide and resume after discussion with primary care physician In regard to back pain take Tylenol scheduled 3 times a day, use Lidoderm patch and use oxycodone only for severe pain In regard to constipation take MiraLax daily and senna Plus, drink fluids, and take daily salads/fruits Elevated blood pressures follow blood pressures at home and adjust dosage if BP noted to be elevated. patient has urinary retention started on Flomax, still retaining urine so Vidal was placed - patient is to follow up outpatient with Urology. Health Concerns: Mild cognitive impairment/hyperlipidemia/ back pain take all home medications as before. Plan of Treatment: Follow-up with primary care physician in 1 week Assessment: Per discharge summary Patient Instructions: Vidal Catheter Placement and Care (GEN), Urinary Leg Bag (GEN) Discharge Date/Time: 10/23/21 17:01
--- NOTE | 2021-10-23 13:51 | P.F2F_ITS ---
Service Date Service Date: 10/23/21 Encounter Date of encounter: 10/23/21 Reasons for Services Signs and symptoms assessed: SONYA, UTI , acute encephalopathy Reason for physical therapy: home safety and mobility, therapeutic exercises, restore joint function, gait/transfer training, assess need for DME, ADL training, energy conservation and other MD Overseeing Care: James Ramos Homebound: Leaving the home is medically contraindicated at this time without the asist of a device and/or another person due th the listed conditions above and below. Reason homebound: unsteady gait / fall risk and weakness related to hospital stay Homebound supporting statement: patient is generalized weak postop addition has multiple comorbidities including SONYA, uti, urinary retention, will need help going to the appointments also. Certification: Based on the above findings, I certify that this patient is confined to the home and needs intermittent prison care, physical therapy and/or speech therapy, or continues to need occupational therapy. The patient is under my care, and I have initiated the establishment of the plan of care. The patient will be followed by a physician who will periodically review the plan of care.
[2021-10-23 15:41] VITALS: BP 155/57; PULSE 57; RESP 16; TEMP 36.4; O2SAT 95
== END 2021-10-23 17:01 | disposition home health service (06) | DRG 689 ==
LOC: HO.ED 10:05 → HO.EDOVER 13:03 → HO.S3 10-20 23:14
PROVIDERS: Hospitalist; Admitting Provider Family Medicine; Emergency Provider Emergency Medicine; Visit Provider Internal Medicine
DX: N39.0 Urinary tract infection, site not specified (principal); G92.8 Other toxic encephalopathy; N17.9 Acute kidney failure, unspecified; I25.10 Atherosclerotic heart disease of native coronary artery without angina pectoris; E78.5 Hyperlipidemia, unspecified; K59.00 Constipation, unspecified; B96.1 Klebsiella pneumoniae [K. pneumoniae] as the cause of diseases classified elsewhere; F01.50 Vascular dementia, unspecified severity, without behavioral disturbance, psychotic disturbance, mood disturbance, and anxiety; R33.9 Retention of urine, unspecified; Z86.73 Personal history of transient ischemic attack (TIA), and cerebral infarction without residual deficits; Z20.822 Contact with and (suspected) exposure to COVID-19; Z87.891 Personal history of nicotine dependence; Z95.1 Presence of aortocoronary bypass graft; Z88.0 Allergy status to penicillin; Z79.82 Long term (current) use of aspirin; Z79.899 Other long term (current) drug therapy
CPT/HCPCS: 36415; 71045; 74176; 80048; 80076; 81001; 82550; 83605; 83690; 83735; 84484; 85014; 85018; 85025; 87040; 87086; 87088; 87186; 87635; 93005; 96361; 96365; 97110; 97162; 97165; 97530; 97535; 99285; C1758; J0696

== ENCOUNTER → 2021-11-07 10:02 | Outpatient (BNVA) | payer OTHER, SELFPAY | PROVIDERS: PCP Internal Medicine; Visit Provider Urology | DX: Z13.9 Encounter for screening, unspecified (principal); N39.0 Urinary tract infection, site not specified | CPT/HCPCS: 51700; 51798 ==

== ENCOUNTER → 2021-12-21 10:56 | Outpatient (BNVA) | payer MEDICARE, SELFPAY | PROVIDERS: PCP Internal Medicine; Visit Provider Urology | DX: N32.0 Bladder-neck obstruction (principal); N39.0 Urinary tract infection, site not specified | CPT/HCPCS: 51798; 99212 ==